=== PATIENT | female | born 1955 | race Caucasian/White ===

== ENCOUNTER → 2016-04-04 | Outpatient (REF) | payer OTHER | LOC: M LABDRAWC 11:12 | PROVIDERS: ATTEND Obstetrics & Gynecology Gynecologic Oncology | DX: C56.2 Malignant neoplasm of left ovary (principal) ==

== ENCOUNTER → 2016-07-18 | Outpatient (REF) | payer OTHER ==
[2016-07-18 13:20] LABS: ANION GAP 9 MEQ/L (8-16); BLOOD UREA NITROGEN 24 MG/DL (7-18); CALCIUM LEVEL 8.7 MG/DL (8.8-10.2); CARBON DIOXIDE LEVEL 28 MEQ/L (21-32); CHLORIDE LEVEL 103 MEQ/L (98-107); CREATININE FOR GFR 0.67 MG/DL (0.55-1.02); GLOMERULAR FILTRATION RATE > 60.0 (>45); GLUCOSE, FASTING 110 MG/DL (80-110); POTASSIUM SERUM 4.6 MEQ/L (3.5-5.1); SODIUM LEVEL 140 MEQ/L (136-145)
== END ==
LOC: M SFHCCLAY 08:13
PROVIDERS: ATTEND Family Medicine
DX: R73.01 Impaired fasting glucose (principal); I10 Essential (primary) hypertension

== ENCOUNTER → 2016-07-18 | Outpatient (REF) | payer OTHER | LOC: M LABDRAWC 11:39 | PROVIDERS: ATTEND Obstetrics & Gynecology Gynecologic Oncology | DX: C56.2 Malignant neoplasm of left ovary (principal) ==

== ENCOUNTER → 2016-10-24 | Outpatient (REF) | payer OTHER | LOC: M LABDRAWC 11:22 | PROVIDERS: ATTEND Obstetrics & Gynecology Gynecologic Oncology | DX: C56.2 Malignant neoplasm of left ovary (principal); Z11.59 Encounter for screening for other viral diseases; I10 Essential (primary) hypertension; E78.00 Pure hypercholesterolemia, unspecified ==

== ENCOUNTER → 2016-10-24 | Outpatient (REF) | payer OTHER ==
[2016-10-24 12:49] LABS: ALBUMIN 3.8 GM/DL (3.2-5.2); ALBUMIN/GLOBULIN RATIO 1.23 (1.00-1.93); ALKALINE PHOSPHATASE 79 U/L (45-117); ALT/SGPT 48 U/L (12-78); AST/SGOT 18 U/L (15-37); BILIRUBIN,DIRECT 0.2 MG/DL (0.0-0.2); BILIRUBIN,TOTAL 0.6 MG/DL (0.2-1.0); TOTAL PROTEIN 6.9 GM/DL (6.4-8.2)
== END ==
LOC: M SFHCCLAY 07:47
PROVIDERS: ATTEND Family Medicine
DX: Z11.59 Encounter for screening for other viral diseases (principal); I10 Essential (primary) hypertension; E78.00 Pure hypercholesterolemia, unspecified

== ENCOUNTER → 2017-02-20 | Outpatient (REF) | payer OTHER | LOC: M LAB REF 11:20 | PROVIDERS: ATTEND Obstetrics & Gynecology Gynecologic Oncology | DX: C56.2 Malignant neoplasm of left ovary (principal) ==

== ENCOUNTER → 2017-06-19 | Outpatient (REF) | payer OTHER ==
[2017-06-19 12:17] LABS: CA 125 9.7 U/ML (<30.2)
== END ==
LOC: M LAB REF 11:11
DX: C56.2 Malignant neoplasm of left ovary (principal)
CPT/HCPCS: 86304

== ENCOUNTER → 2017-09-20 | Outpatient (REF) | payer OTHER ==
[2017-09-21 11:35] LABS: HEMATOCRIT 43.1 % (36.0-47.0); HEMOGLOBIN 14.7 g/dl (12.0-15.5); MEAN CORPUSCULAR HEMOGLOBIN 30.8 pg (27.0-33.0); MEAN CORPUSCULAR HGB CONC 34.1 g/dl (32.0-36.5); MEAN CORPUSCULAR VOLUME 90.2 fl (80.0-96.0); PLATELET COUNT, AUTOMATED 288 10^3/uL (150-450); RED BLOOD COUNT 4.78 10^6/uL (4.00-5.40); RED CELL DISTRIBUTION WIDTH 11.8 % (11.5-14.5); WHITE BLOOD COUNT 5.7 10^3/uL (4.0-10.0)
[2017-09-21 12:02] LABS: ERYTHROCYTE SEDIMENTATION RATE 5 mm/hr (0-30)
[2017-09-21 12:12] LABS: ALBUMIN 3.9 GM/DL (3.2-5.2); ALBUMIN/GLOBULIN RATIO 1.08 (1.00-1.93); ALKALINE PHOSPHATASE 68 U/L (45-117); ALT/SGPT 66 U/L (12-78); ANION GAP 10 MEQ/L (8-16); AST/SGOT 32 U/L (7-37); BILIRUBIN,TOTAL 0.7 MG/DL (0.2-1.0); BLOOD UREA NITROGEN 17 MG/DL (7-18); CARBON DIOXIDE LEVEL 31 MEQ/L (21-32); CHLORIDE LEVEL 100 MEQ/L (98-107); CREATININE FOR GFR 0.73 MG/DL (0.55-1.30); GLOMERULAR FILTRATION RATE > 60.0 (>45); GLUCOSE, FASTING 107 MG/DL (70-100); POTASSIUM SERUM 4.2 MEQ/L (3.5-5.1); SODIUM LEVEL 141 MEQ/L (136-145); TOTAL PROTEIN 7.5 GM/DL (6.4-8.2)
[2017-09-24 11:11] LABS: ALBUMIN % 57.3 % (55.8-66.1); ALPHA-1-GLOBULIN % 3.9 % (2.9-4.9); ALPHA-1-GLOBULINS 0.29 GM/DL (0.17-0.41); ALPHA-2-GLOBULINS % 9.3 % (7.1-11.8); BETA-1-GLOBULINS % 6.6 % (4.7-7.2); BETA-2-GLOBULINS 0.53 GM/DL (0.19-0.55); BETA-2-GLOBULINS % 7.1 % (3.2-6.5); GAMMA GLOBULIN % 15.8 % (11.1-18.8); GAMMA GLOBULINS 1.19 GM/DL (0.65-1.58)
== END ==
LOC: M SFHCCLAY 13:44
DX: R10.9 Unspecified abdominal pain (principal); I10 Essential (primary) hypertension; Z85.43 Personal history of malignant neoplasm of ovary; N20.0 Calculus of kidney

== ENCOUNTER → 2017-09-24 | Outpatient (CLI) | payer OTHER | LOC: M RAD 07:47 | DX: K76.0 Fatty (change of) liver, not elsewhere classified (principal); K43.9 Ventral hernia without obstruction or gangrene; K57.30 Diverticulosis of large intestine without perforation or abscess without bleeding; R10.9 Unspecified abdominal pain; N20.0 Calculus of kidney; Z85.43 Personal history of malignant neoplasm of ovary | CPT/HCPCS: 74176 ==

== ENCOUNTER 2017-10-10 10:54 | Day surgery (SDC) | payer OTHER ==
[2017-10-10] MEDS: NS 1,000 ML IV (11:00)
[2017-10-10] MEDS ORDERED: PROPOFOL 200 MG/20 ML VIAL As Ordered ×2 (11:41)
[2017-10-10] MEDS ORDERED: LIDOCAINE 2% INJ 100 MG/5 ML SDV (FOR ANES.) As Ordered (11:41)
[2017-10-10] MEDS ORDERED: fentaNYL 100 MCG/2 ML INJECTION (J3010) As Ordered (11:43)
== END 2017-10-10 12:51 | disposition home or self-care (01) ==
LOC: M OPP 10:54
DX: K64.0 First degree hemorrhoids (principal); K57.30 Diverticulosis of large intestine without perforation or abscess without bleeding; K22.8 Other specified diseases of esophagus; K44.9 Diaphragmatic hernia without obstruction or gangrene; K31.89 Other diseases of stomach and duodenum; I10 Essential (primary) hypertension; E78.00 Pure hypercholesterolemia, unspecified; Z79.82 Long term (current) use of aspirin; Z79.899 Other long term (current) drug therapy; Z88.5 Allergy status to narcotic agent; Z88.8 Allergy status to other drugs, medicaments and biological substances; Z91.89 Other specified personal risk factors, not elsewhere classified; Z90.710 Acquired absence of both cervix and uterus; Z80.0 Family history of malignant neoplasm of digestive organs; Z82.49 Family history of ischemic heart disease and other diseases of the circulatory system; Z83.3 Family history of diabetes mellitus
CPT/HCPCS: 45378

== ENCOUNTER → 2017-12-18 | Outpatient (REF) | payer OTHER | LOC: M LABDRAWC 11:35 | DX: C56.2 Malignant neoplasm of left ovary (principal) ==

== ENCOUNTER → 2018-05-31 | Outpatient (CLI) | payer MEDICARE, OTHER ==
[~2018-05-31] MED LIST: ASPI1TAB PO; CARV25TA; FELO5TAB; FISH100049 PO; FISH600C PO; LASI40TA9 PO; MAGN1TAB25 PO; PRAV20TA2 PO; QUIN1TAB4 PO; VITA100067 PO; VITA50TA43 PO
--- NOTE | 2018-05-31 11:51 | REP ---
Abdomen: Two views. History: Kidney stone. Comparison study: February 12, 2008. Findings: There are clips in the upper abdomen bilaterally. Central abdominal clips are noted. There is a mild levoconvex curve in the lumbar spine. The bowel gas pattern is unremarkable. There is a faintly visible 4 mm calculus projecting over the lower pole region of the right kidney. This corresponds with findings on CT study from September 24, 2017. No other urinary tract calculi are visible. Impression: 4 mm calculus projected at the lower pole right kidney. Postoperative clips.
== END ==
LOC: M CLY 10:02
PROVIDERS: ATTEND Nurse Practitioner Women's Health
DX: N20.0 Calculus of kidney (principal)

== ENCOUNTER → 2018-06-18 | Outpatient (REF) | payer MEDICARE, OTHER | LOC: M LABDRAWC 11:24 | PROVIDERS: ATTEND Obstetrics & Gynecology Gynecologic Oncology | DX: C56.2 Malignant neoplasm of left ovary (principal) ==

== ENCOUNTER → 2018-07-09 | Outpatient (REF) | payer MEDICARE, OTHER ==
[~2018-07-09] MED LIST changes: -ASPI1TAB PO; +ASPI81TA26 PO; +FISH1000 PO; -MAGN1TAB25 PO; +MAGN1TAB26 PO; +PROBCAP14 PO; +VITAD1000T PO
[2018-07-09 17:38] LABS: BLOOD UREA NITROGEN 22 MG/DL (7-18); CALCIUM LEVEL 9.1 MG/DL (8.8-10.2); CARBON DIOXIDE LEVEL 32 MEQ/L (21-32); CHLORIDE LEVEL 103 MEQ/L (98-107); CREATININE FOR GFR 0.76 MG/DL (0.55-1.30); GLOMERULAR FILTRATION RATE > 60.0 (>45); GLUCOSE, FASTING 94 MG/DL (70-100); SODIUM LEVEL 139 MEQ/L (136-145)
[2018-07-09 17:44] LABS: HEMATOCRIT 41.8 % (36.0-47.0); HEMOGLOBIN 13.9 g/dl (12.0-15.5); MEAN CORPUSCULAR HEMOGLOBIN 31.2 pg (27.0-33.0); MEAN CORPUSCULAR HGB CONC 33.3 g/dl (32.0-36.5); MEAN CORPUSCULAR VOLUME 93.7 fl (80.0-96.0); PLATELET COUNT, AUTOMATED 241 10^3/uL (150-450); RED BLOOD COUNT 4.46 10^6/uL (4.00-5.40); WHITE BLOOD COUNT 5.6 10^3/uL (4.0-10.0)
[2018-07-09 17:53] LABS: INR 0.95; PROTHROMBIN TIME 12.8 SECONDS (12.1-14.4)
[2018-07-09 17:54] LABS: PARTIAL THROMBOPLASTIN TIME 27.7 SECONDS (25.4-37.6)
== END ==
LOC: M LABSMT 10:03
PROVIDERS: ATTEND Nurse Practitioner Family
DX: Z01.818 Encounter for other preprocedural examination (principal); N20.0 Calculus of kidney; Z79.01 Long term (current) use of anticoagulants

== ENCOUNTER → 2018-07-09 | Outpatient (CLI) | payer MEDICARE, OTHER ==
--- NOTE | 2018-07-09 12:20 | REP ---
PA and lateral chest: Comparison is 07/29/2012. The lung soto appear hyperinflated, as previously. The lung soto are clear. The cardiac size is normal. The chad, mediastinum, and skeletal structures are unremarkable except for a small metallic screw in the left humeral head as an interval change. Impression: Hyperinflation, otherwise, negative PA and lateral chest. Electronically Signed by Sohail Oconnell MD 07/09/2018 12:12 P
== END ==
LOC: M CLY 10:08
PROVIDERS: ATTEND Nurse Practitioner Family
DX: Z01.818 Encounter for other preprocedural examination (principal); N20.0 Calculus of kidney; R91.8 Other nonspecific abnormal finding of lung field

== ENCOUNTER 2018-07-18 06:33 | Day surgery (SDC) | payer MEDICARE, OTHER ==
[~2018-07-18] VITALS: Ht 165.1 cm; Wt 101.6 kg
[~2018-07-18 06:33] MED LIST changes: +LR 1,000 ML IV ONE
[2018-07-18] MEDS ORDERED: PROPOFOL 200 MG/20 ML VIAL As Ordered ONE ×2 (07:52→09:56)
[2018-07-18] MEDS ORDERED: MIDAZOLAM INJ 2 MG/2 ML VIAL (J2250) As Ordered ONE (07:53)
[2018-07-18] MEDS ORDERED: fentaNYL 100 MCG/2 ML INJECTION (J3010) As Ordered ONE (07:54)
--- NOTE | 2018-07-18 10:19 | REP ---
KUB, ONE VIEW: HISTORY Kidney stone. COMPARISON: 05/31/2018. Air is present in small and large intestine. There are no air fluid levels or dilated loops of intestine. There is no pneumoperitoneum. Calcification is present overlying the right kidney consistent with nephrolithiasis. Surgical clips are present in the abdomen. IMPRESSION: 1. Nonspecific bowel gas pattern. 2. Right nephrolithiasis. Electronically Signed by Kg aCrson MD 07/18/2018 10:30 A
[2018-07-18] MEDS ORDERED: ACETAMINOPHEN TAB 650MG DOSE (2X325MG) PO PRN (10:30)
[2018-07-18 11:55] VITALS: BP 151/70
--- NOTE | 2018-07-19 13:29 | RO ---
DATE OF PROCEDURE: 07/18/2018 PREPROCEDURE DIAGNOSIS: Right kidney stone. POSTPROCEDURE DIAGNOSIS: Right kidney stone. PROCEDURE: Right extracorporeal shockwave lithotripsy. SURGEON: Dr. Michel Moe SILK SCREEN LAYOUT DRAFTER: None. ANESTHESIA: Monitored anesthesia care (MAC). OPERATIVE INDICATIONS: This is a 63-year-old female found to have a 4 mm non obstructing right kidney stone on recent imaging. She was brought to the operating room today for the above listed procedure. DESCRIPTION OF PROCEDURE: The patient was brought to the operating room and MAC anesthesia was administered. Prophylactic antibiotics were infused. She was then placed in supine position for preparation for right sided extracorporeal shockwave lithotripsy. Fluoroscopy was utilized to monitor the stone position and fragmentation throughout the procedure. Shockwaves were then administered to the right sided kidney stone ungated. There were no arrhythmias. The stones appeared to fragment well. After 2500 shocks, the procedure was concluded. The patient was then awakened from anesthesia and transported to the recovery room in stable condition. Estimated blood loss 0 mL. Complications: None. Specimens: None. Plan: The patient will followup in the clinic in a few weeks with imaging prior to assess for residual stone burden.
== END 2018-07-18 11:56 | disposition home or self-care (01) ==
LOC: M SDC 06:33
PROVIDERS: ATTEND Urology
DX: N20.0 Calculus of kidney (principal); I10 Essential (primary) hypertension; E78.00 Pure hypercholesterolemia, unspecified; K57.30 Diverticulosis of large intestine without perforation or abscess without bleeding; K44.9 Diaphragmatic hernia without obstruction or gangrene; K76.0 Fatty (change of) liver, not elsewhere classified; M17.0 Bilateral primary osteoarthritis of knee; I89.0 Lymphedema, not elsewhere classified; E66.9 Obesity, unspecified; Z68.38 Body mass index [BMI] 38.0-38.9, adult; Z88.5 Allergy status to narcotic agent; Z88.6 Allergy status to analgesic agent; Z79.899 Other long term (current) drug therapy; Z85.43 Personal history of malignant neoplasm of ovary; Z15.09 Genetic susceptibility to other malignant neoplasm; Z92.21 Personal history of antineoplastic chemotherapy
CPT/HCPCS: 50590; 74018; J0690; J2250; J3010

== ENCOUNTER → 2018-08-08 | Outpatient (CLI) | payer MEDICARE, OTHER ==
[~2018-08-08] MED LIST changes: -LR 1,000 ML IV ONE
--- NOTE | 2018-08-08 09:32 | REP ---
KUB, ONE VIEW: HISTORY: Nephrolithiasis. COMPARISON: 07/18/2018. A small amount of air is present in small and large intestine. There are no air fluid levels or dilated loops of intestine. There is no pneumoperitoneum. Calcification is present overlying the right kidney consistent with nephrolithiasis. Surgical clips are present in the abdomen. IMPRESSION: 1. Nonspecific bowel gas pattern. 2. Right nephrolithiasis. Electronically Signed by Kg Carson MD 08/08/2018 09:43 A
== END ==
LOC: M SMT 08:48
PROVIDERS: ATTEND Nurse Practitioner Family
DX: N20.0 Calculus of kidney (principal)

== ENCOUNTER → 2018-10-22 | Outpatient (REF) | payer MEDICARE, OTHER ==
[2018-10-22 12:16] LABS: ALBUMIN 3.6 GM/DL (3.2-5.2); PERCENT SATURATION 27.3 % (13.2-45.0)
== END ==
LOC: M LABDRAWC 11:36
PROVIDERS: ATTEND Orthopaedic Surgery Adult Reconstructive Orthopaedic Surgery
DX: K90.9 Intestinal malabsorption, unspecified (principal); M25.562 Pain in left knee; Z01.818 Encounter for other preprocedural examination; M17.12 Unilateral primary osteoarthritis, left knee

== ENCOUNTER → 2018-12-24 | Outpatient (REF) | payer MEDICARE, OTHER ==
[~2018-12-24] MED LIST changes: +CHOL100029 PO; -FELO5TAB; +FELO5TAB26; -VITAD1000T PO
== END ==
LOC: M LABDRAWC 11:02
PROVIDERS: ATTEND Obstetrics & Gynecology Gynecologic Oncology
DX: C56.2 Malignant neoplasm of left ovary (principal)

== ENCOUNTER → 2019-02-07 | Outpatient (CLI) | payer MEDICARE, OTHER ==
[~2019-02-07] MED LIST changes: +FELO5TAB; -FELO5TAB26
--- NOTE | 2019-02-07 16:03 | REP ---
Single view abdomen: 02/07/2019. Indication: Renal calculus. Comparison: Plain film dated 08/08/[address] dated 09/24/2017. Findings: The right renal calculus is better demonstrated by CT. There is no change compared to 08/08/2018. Scoliosis and degenerative sequelae are present most pronounced on the right at L3/L4. There is no evidence of bowel obstruction. Multiple abdominal surgical clips are noted. Impression: Nonobstructive right renal calculus better demonstrated by CT technique. Electronically Signed by Morteza Veronica DO 02/07/2019 03:55 P
== END ==
LOC: M RAD 15:20
PROVIDERS: ATTEND Nurse Practitioner Family
DX: N20.0 Calculus of kidney (principal)

== ENCOUNTER → 2019-07-15 | Outpatient (REF) | payer MEDICARE, OTHER ==
[~2019-07-15] MED LIST changes: -FELO5TAB; +FELO5TAB26
== END ==
LOC: M LABDRAWC 11:13
PROVIDERS: ATTEND Obstetrics & Gynecology Gynecologic Oncology
DX: C56.2 Malignant neoplasm of left ovary (principal)

== ENCOUNTER → 2019-10-11 | Outpatient (CLI) | payer MEDICARE, OTHER | LOC: M LABSMTC 12:07 | PROVIDERS: ATTEND Family Medicine | DX: Z11.59 Encounter for screening for other viral diseases (principal); Z20.828 Contact with and (suspected) exposure to other viral communicable diseases | CPT/HCPCS: C9803; U0003 ==

== ENCOUNTER → 2019-11-03 | Outpatient (REF) | payer MEDICARE, OTHER ==
[2019-12-17 13:50] LABS: ALBUMIN 3.7 GM/DL (3.2-5.2); PERCENT SATURATION 32.2 % (13.2-45.0)
== END ==
LOC: M LABDRAWC 09:50
PROVIDERS: ATTEND Orthopaedic Surgery Adult Reconstructive Orthopaedic Surgery
DX: Z01.818 Encounter for other preprocedural examination (principal); M17.11 Unilateral primary osteoarthritis, right knee; M25.561 Pain in right knee; D63.8 Anemia in other chronic diseases classified elsewhere

== ENCOUNTER → 2019-11-14 | Outpatient (REF) | payer MEDICARE, OTHER ==
[2019-11-14 13:26] LABS: ALBUMIN 3.8 GM/DL (3.2-5.2); ALT/SGPT 42 U/L (12-78); BILIRUBIN,TOTAL 0.6 MG/DL (0.2-1.0); BLOOD UREA NITROGEN 16 MG/DL (7-18); CALCIUM LEVEL 9.2 MG/DL (8.8-10.2); CARBON DIOXIDE LEVEL 30 MEQ/L (21-32); CHLORIDE LEVEL 107 MEQ/L (98-107); CREATININE FOR GFR 0.84 MG/DL (0.55-1.30); GLOMERULAR FILTRATION RATE > 60.0 (>45); GLUCOSE, FASTING 127 MG/DL (70-100); POTASSIUM SERUM 4.3 MEQ/L (3.5-5.1); SODIUM LEVEL 139 MEQ/L (136-145); TOTAL PROTEIN 6.9 GM/DL (6.4-8.2)
== END ==
LOC: M LABDRAWC 12:12
PROVIDERS: ATTEND Family Medicine
DX: K76.0 Fatty (change of) liver, not elsewhere classified (principal); I10 Essential (primary) hypertension

== ENCOUNTER → 2020-01-14 | Outpatient (REF) | payer MEDICARE, OTHER | LOC: M LABDRAWC 11:28 | PROVIDERS: ATTEND Obstetrics & Gynecology Gynecologic Oncology | DX: C56.2 Malignant neoplasm of left ovary (principal) ==

== ENCOUNTER → 2020-02-06 | Outpatient (CLI) | payer MEDICARE, OTHER ==
--- NOTE | 2020-02-06 13:28 | REP ---
INDICATION: N20.0, KIDNEY STONE. COMPARISON: 02/07/2019 FINDINGS: KUB shows the intestinal gas pattern to be nonspecific. The organ silhouettes insofar as delineated are unremarkable. There is no evidence of free intraperitoneal air. There is a disc shaped radiodensity in the region of the gastric air bubble consistent with an ingested pill form of medication. There are bilateral pelvic phleboliths status quo. There is no significant change in the osseous structures. IMPRESSION: No significant change. <Electronically signed by Raimundo Garcia > 02/06/20 0718
== END ==
LOC: M CLY 10:59
PROVIDERS: ATTEND Nurse Practitioner Family
DX: I87.8 Other specified disorders of veins (principal); N20.0 Calculus of kidney
CPT/HCPCS: 74018; G0463

== ENCOUNTER → 2020-07-15 | Outpatient (REF) | payer MEDICARE, OTHER | LOC: M LABDRAWC 11:31 | PROVIDERS: ATTEND Obstetrics & Gynecology Gynecologic Oncology | DX: C56.2 Malignant neoplasm of left ovary (principal) ==

== ENCOUNTER → 2020-08-04 | Outpatient (CLI) | payer MEDICARE, OTHER ==
[~2020-08-04] MED LIST changes: +D31000TA2 PO; +DILT1CAP5 PO; +ELIQ5TAB PO; +POTA1TAB14 PO; +QUIN10TA32 PO
== END ==
LOC: M LABSMTC 12:19
PROVIDERS: ATTEND Anesthesiology
DX: Z01.812 Encounter for preprocedural laboratory examination (principal); Z20.822 Contact with and (suspected) exposure to COVID-19

== ENCOUNTER → 2020-08-06 | Outpatient (REF) | payer MEDICARE, OTHER ==
[2020-08-06 11:45] LABS: BASO % 0.2 % (0.0-1.0); EOS # 0.1 10^3/uL (0.0-0.5); EOS % 1.6 % (0.0-3.0); HEMATOCRIT 43.1 % (36.0-47.0); HEMOGLOBIN 14.3 g/dl (12.0-15.5); LYMPH # 1.4 10^3/uL (1.5-5.0); LYMPH % 33.3 % (24.0-44.0); MEAN CORPUSCULAR HGB CONC 33.2 g/dl (32.0-36.5); MEAN CORPUSCULAR VOLUME 93.3 fl (80.0-96.0); MONO # 0.5 10^3/uL (0.0-0.8); MONO % 11.6 % (2.0-8.0); NEUTROPHILS # 2.3 10^3/uL (1.5-8.5); NEUTROPHILS % 53.1 % (36.0-66.0); PLATELET COUNT, AUTOMATED 217 10^3/uL (150-450); RED BLOOD COUNT 4.62 10^6/uL (4.00-5.40); WHITE BLOOD COUNT 4.3 10^3/uL (4.0-10.0)
[2020-08-06 12:27] LABS: ALBUMIN 3.5 GM/DL (3.2-5.2); ALT/SGPT 36 U/L (12-78); BILIRUBIN,TOTAL 0.6 MG/DL (0.2-1.0); BLOOD UREA NITROGEN 20 MG/DL (7-18); CALCIUM LEVEL 9.1 MG/DL (8.8-10.2); CARBON DIOXIDE LEVEL 30 MEQ/L (21-32); CHLORIDE LEVEL 106 MEQ/L (98-107); CHOLESTEROL LEVEL 169 MG/DL (<200); CREATININE FOR GFR 0.75 MG/DL (0.55-1.30); GLOMERULAR FILTRATION RATE > 60.0 (>45); GLUCOSE, FASTING 117 MG/DL (70-100); HDL CHOLESTEROL 65 MG/DL (>40); LDL CHOLESTEROL 79 MG/DL (<100); NON-HDL-C 104 MG/DL; POTASSIUM SERUM 4.3 MEQ/L (3.5-5.1); SODIUM LEVEL 141 MEQ/L (136-145); TOTAL PROTEIN 6.5 GM/DL (6.4-8.2); TRIGLYCERIDES LEVEL 123 MG/DL (<150)
[2020-08-06 12:39] LABS: HEMOGLOBIN A1c 5.7 %
== END ==
LOC: M SFHCCLAY 08:30
PROVIDERS: ATTEND Family Medicine
DX: I10 Essential (primary) hypertension (principal); I48.0 Paroxysmal atrial fibrillation; E78.00 Pure hypercholesterolemia, unspecified; Z79.899 Other long term (current) drug therapy

== ENCOUNTER 2020-08-09 09:43 | Day surgery (SDC) | payer MEDICARE, OTHER ==
[~2020-08-09] VITALS: Ht 165.1 cm; Wt 105.7 kg
[~2020-08-09 09:43] MED LIST changes: +NS 1,000 ML IV ONE
[2020-08-09] MEDS ORDERED: propofoL 500 MG/50 ML VIAL As Ordered ONE (09:58)
[2020-08-09] MEDS ORDERED: LIDOCAINE 2% 100MG/5ML SDV (FOR ANES.) As Ordered ONE (09:58)
[2020-08-09] MEDS ORDERED: fentaNYL 100 MCG/2 ML INJECTION (J3010) As Ordered ONE (10:37)
--- NOTE | 2020-08-09 10:52 | ROOR ---
Patient Name: Gina Avendano Procedure Date: 08/09/2020 10:34 AM Date of : 1955 Age: 65 Room: [facility] Gender: Female Note Status: Finalized Procedure: Upper Endoscopy + Biopsies Indications: Heartburn, Exclusion of Brooks's esophagus Providers: Enzo Ramos MD Referring MD: Herbert Amaya MD Requesting Provider: Medicines: Monitored Anesthesia Care Complications: No immediate complications. Procedure: Pre-Anesthesia Assessment: - The heart rate, respiratory rate, oxygen saturations, blood pressure, adequacy of pulmonary ventilation, and response to care were monitored throughout the procedure. The Endoscope was introduced through the mouth, and advanced to the second part of duodenum. The upper GI endoscopy was accomplished without difficulty. The patient tolerated the procedure well. Findings: The Z-line was irregular and was found 40 cm from the incisors. Multiple biopsies were obtained with cold forceps for evaluation to rule out Brooks's Esophagus randomly. A small hiatal hernia was present. Localized mild inflammation characterized by congestion (edema) and erosions was found in the gastric antrum. Biopsies were taken with a cold forceps for Helicobacter pylori testing. The exam of the duodenum was otherwise normal. Impression: - Z-line irregular, 40 cm from the incisors. - Small hiatal hernia. - Mucosal changes suspicious for gastritis. Biopsied. - Multiple biopsies were obtained. - The examination was otherwise normal. Recommendation: - Patient has a contact number available for emergencies. The signs and symptoms of potential delayed complications were discussed with the patient. Return to normal activities tomorrow. Written discharge instructions were provided to the patient. - High fiber diet. - Discharge patient to home. - Continue present medications. - Await pathology results. - Telephone GI clinic for pathology results in 1 week. - Return to referring physician. - The findings and recommendations were discussed with the patient's family. Procedure Code(s): --- Professional --- 48830, Esophagogastroduodenoscopy, flexible, transoral; with biopsy, single or multiple Diagnosis Code(s): --- Professional --- K22.8, Other specified diseases of esophagus K44.9, Diaphragmatic hernia without obstruction or gangrene K31.89, Other diseases of stomach and duodenum R12, Heartburn CPT copyright 2019 [employer]. All rights reserved. The codes documented in this report are preliminary and upon label coder review may be revised to meet current compliance requirements. Enzo Ramos MD Enzo aRmos MD 08/09/2020 10:52:07 AM Electronically signed by Enzo Ramos MD Number of Addenda: 0 Note Initiated On: 08/09/2020 10:34 AM Estimated Blood Loss: Estimated blood loss: none.
--- NOTE | 2020-08-09 11:09 | ROOR ---
Patient Name: Gina Avendano Procedure Date: 08/09/2020 10:34 AM Date of : 1955 Age: 65 Room: [facility] Gender: Female Note Status: Finalized Procedure: Total Colonoscopy to Cecum + ileoscopy Indications: Colon cancer screening in patient at increased risk: Family history of hereditary nonpolyposis colorectal cancer in 1st-degree relative Providers: Enzo Ramos MD Referring MD: Herbert Amaya MD Requesting Provider: Medicines: Monitored Anesthesia Care Complications: No immediate complications. Procedure: Pre-Anesthesia Assessment: - The heart rate, respiratory rate, oxygen saturations, blood pressure, adequacy of pulmonary ventilation, and response to care were monitored throughout the procedure. The Colonoscope was introduced through the anus and advanced to the cecum, identified by appendiceal orifice and ileocecal valve. The colonoscopy was performed without difficulty. The patient tolerated the procedure well. The quality of the bowel preparation was excellent. Findings: The perianal and digital rectal examinations were normal. Non-bleeding internal hemorrhoids were found during retroflexion. The hemorrhoids were small and Grade I (internal hemorrhoids that do not prolapse). Multiple small and large-mouthed diverticula were found in the recto-sigmoid colon, sigmoid colon and descending colon. The exam was otherwise without abnormality on direct and retroflexion views. The terminal ileum appeared normal. The exam was otherwise without abnormality. Impression: - Non-bleeding internal hemorrhoids. - Diverticulosis in the recto-sigmoid colon, in the sigmoid colon and in the descending colon. - The examination was otherwise normal on direct and retroflexion views. - The examined portion of the ileum was normal. - The examination was otherwise normal. - No specimens collected. - The exam was otherwise normal to the cecum. Recommendation: - Patient has a contact number available for emergencies. The signs and symptoms of potential delayed complications were discussed with the patient. Return to normal activities tomorrow. Written discharge instructions were provided to the patient. - High fiber diet. - Discharge patient to home. - Continue present medications. - Resume Eliquis (apixaban) at prior dose today. - Repeat colonoscopy in 3 years for screening purposes. - Return to referring physician. - The findings and recommendations were discussed with the patient's family. Procedure Code(s): --- Professional --- G0105, Colorectal cancer screening; colonoscopy on individual at high risk Diagnosis Code(s): --- Professional --- Z80.0, Family history of malignant neoplasm of digestive organs K64.0, First degree hemorrhoids K57.30, Diverticulosis of large intestine without perforation or abscess without bleeding CPT copyright 2019 [employer]. All rights reserved. The codes documented in this report are preliminary and upon surgical coder review may be revised to meet current compliance requirements. Enzo Ramos MD Enzo Ramos MD 08/09/2020 11:08:20 AM Electronically signed by Enzo Ramos MD Number of Addenda: 0 Note Initiated On: 08/09/2020 10:34 AM Estimated Blood Loss: Estimated blood loss: none.
[2020-08-09 11:30] VITALS: BP 191/88
== END 2020-08-09 11:45 | disposition home or self-care (01) ==
LOC: M OPP 09:43
PROVIDERS: ATTEND Internal Medicine Gastroenterology
DX: Z12.11 Encounter for screening for malignant neoplasm of colon (principal); Z80.0 Family history of malignant neoplasm of digestive organs; K57.30 Diverticulosis of large intestine without perforation or abscess without bleeding; K64.0 First degree hemorrhoids; K22.8 Other specified diseases of esophagus; K44.9 Diaphragmatic hernia without obstruction or gangrene; K31.89 Other diseases of stomach and duodenum; R12 Heartburn; Z79.899 Other long term (current) drug therapy; Z88.5 Allergy status to narcotic agent; Z15.09 Genetic susceptibility to other malignant neoplasm; Z85.43 Personal history of malignant neoplasm of ovary; Z92.21 Personal history of antineoplastic chemotherapy
CPT/HCPCS: 43239; 88305; G0105; J3010

== ENCOUNTER → 2020-08-19 | Outpatient (REF) | payer MEDICARE, OTHER ==
[~2020-08-19] MED LIST changes: -NS 1,000 ML IV ONE
== END ==
LOC: M LABDRAWC 11:19
PROVIDERS: ATTEND Nurse Practitioner Family
DX: I48.91 Unspecified atrial fibrillation (principal)

== ENCOUNTER → 2021-01-14 | Outpatient (REF) | payer MEDICARE, OTHER | LOC: M LABDRAWC 11:16 | PROVIDERS: ATTEND Nurse Practitioner | DX: C56.2 Malignant neoplasm of left ovary (principal) ==

== ENCOUNTER → 2021-05-05 | Outpatient (REF) | payer MEDICARE, OTHER ==
[2021-05-05 13:20] LABS: ALBUMIN 3.7 GM/DL (3.2-5.2); ALT/SGPT 42 U/L (12-78); BILIRUBIN,TOTAL 0.6 MG/DL (0.2-1.0); BLOOD UREA NITROGEN 20 MG/DL (7-18); CALCIUM LEVEL 9.4 MG/DL (8.8-10.2); CARBON DIOXIDE LEVEL 29 MEQ/L (21-32); CHLORIDE LEVEL 104 MEQ/L (98-107); CREATININE FOR GFR 0.89 MG/DL (0.55-1.30); GLOMERULAR FILTRATION RATE > 60.0 (>45); GLUCOSE, FASTING 117 MG/DL (70-100); POTASSIUM SERUM 4.4 MEQ/L (3.5-5.1); SODIUM LEVEL 140 MEQ/L (136-145); TOTAL PROTEIN 6.8 GM/DL (6.4-8.2)
== END ==
LOC: M LABDRAWC 11:36
PROVIDERS: ATTEND Internal Medicine Hematology & Oncology
DX: C50.312 Malignant neoplasm of lower-inner quadrant of left female breast (principal); Z17.0 Estrogen receptor positive status [ER+]

== ENCOUNTER 2021-06-10 13:20 | Inpatient (IN) | payer MEDICARE, OTHER ==
[~2021-06-10] VITALS: Ht 162.6 cm; Wt 103.5 kg
[2021-06-10] VITALS (8 sets, daily range): BP systolic 138–238; BP diastolic 73–112
[~2021-06-10 13:20] MED LIST changes: -CARV25TA; +CARV25TA PO; -D31000TA2 PO; +VITA100093 PO
[2021-06-10] MEDS ORDERED: DEXTROSE 50% 50 ML SYRINGE IV PRN (13:55)
[2021-06-10] MEDS ORDERED: GLUCAGON INJ 1MG VIAL SC PRN (13:55)
[2021-06-10] MEDS ORDERED: GLUCOSE 4GM CHEW TABLET PO PRN (13:55)
[2021-06-10] MEDS ORDERED: hydrALAZINE 20MG/ML 1ML VIAL (J0360 PER 20MG) IV STA (16:13)
[2021-06-10] MEDS: NITROGLYCERIN 2% OINT 1 GM *U/D* PKT TOP SCH ×2 (16:37→21:18)
[2021-06-10] MEDS: ONDANSETRON 4MG/2ML VIAL IV PRN (16:42)
[2021-06-10] MEDS ORDERED: KETOROLAC 30 MG/ML 1ML VIAL IV PRN (17:00)
[2021-06-10 17:24] LABS: HEMATOCRIT 45.5 % (36.0-47.0); HEMOGLOBIN 15.4 g/dl (12.0-15.5); LYMPH # 0.5 10^3/uL (1.5-5.0); LYMPH % 4.6 % (24.0-44.0); MEAN CORPUSCULAR HEMOGLOBIN 30.7 pg (27.0-33.0); MEAN CORPUSCULAR HGB CONC 33.8 g/dl (32.0-36.5); MEAN CORPUSCULAR VOLUME 90.6 fl (80.0-96.0); MONO # 0.7 10^3/uL (0.0-0.8); MONO % 6.7 % (2.0-8.0); NEUTROPHILS # 9.6 10^3/uL (1.5-8.5); NEUTROPHILS % 88.1 % (36.0-66.0); PLATELET COUNT, AUTOMATED 231 10^3/uL (150-450); RED BLOOD COUNT 5.02 10^6/uL (4.00-5.40); WHITE BLOOD COUNT 10.9 10^3/uL (4.0-10.0)
[2021-06-10 17:34] LABS: INR 1.03; PROTHROMBIN TIME 13.9 SECONDS (12.7-14.5)
[2021-06-10 17:35] LABS: PARTIAL THROMBOPLASTIN TIME 23.1 SECONDS (25.9-37.0)
[2021-06-10 17:39] LABS: CK-MB VALUE MASS 1.6 NG/ML (<3.6)
[2021-06-10] MEDS ORDERED: FURO40TA2 PO (17:44)
[2021-06-10] MEDS ORDERED: OMEP-173 PO (17:44)
[2021-06-10] MEDS ORDERED: ANAS1TAB2 PO (17:44)
[2021-06-10 17:49] LABS: ALBUMIN 3.9 GM/DL (3.2-5.2); ALT/SGPT 42 U/L (12-78); BILIRUBIN,TOTAL 0.6 MG/DL (0.2-1.0); BLOOD UREA NITROGEN 21 MG/DL (7-18); CALCIUM LEVEL 9.1 MG/DL (8.8-10.2); CARBON DIOXIDE LEVEL 27 MEQ/L (21-32); CHLORIDE LEVEL 109 MEQ/L (98-107); CREATININE FOR GFR 0.81 MG/DL (0.55-1.30); GLOMERULAR FILTRATION RATE > 60.0 (>45); GLUCOSE, FASTING 157 MG/DL (70-100); MAGNESIUM LEVEL 2.1 MG/DL (1.8-2.4); NT-PRO BNP 845 PG/ML (<125); POTASSIUM SERUM 3.7 MEQ/L (3.5-5.1); SODIUM LEVEL 143 MEQ/L (136-145); THYROID STIMULATING HORMONE 0.767 uIU/ML (0.358-3.740); TOTAL PROTEIN 7.2 GM/DL (6.4-8.2)
[2021-06-10 17:57] LABS: ERYTHROCYTE SEDIMENTATION RATE 4 mm/hr (0-30)
[2021-06-10] MEDS ORDERED: hydrALAZINE 20MG/ML 1ML VIAL (J0360 PER 20MG) As Ordered ONE (18:42)
[2021-06-10] MEDS ORDERED: CALC600T60 PO (18:43)
[2021-06-10] MEDS ORDERED: HOME MED LIST COMPLETE! XX SCH (18:45)
[2021-06-11] VITALS (14 sets, daily range): BP systolic 139–187; BP diastolic 61–88; O2SAT 97
[2021-06-11] MEDS: hydrALAZINE 20MG/ML 1ML VIAL (J0360 PER 20MG) IV SCH ×5 (00:23→23:48)
[2021-06-11] MEDS: NITROGLYCERIN 2% OINT 1 GM *U/D* PKT TOP SCH ×2 (01:12→05:08)
[2021-06-11] MEDS ORDERED: HYDROMORPHONE HCL 0.5 MG/ 0.5 ML SYRINGE (J1170 PER 1) IV PRN (03:25)
[2021-06-11] MEDS: SIMETHICONE 80MG CHEW TAB PO SCH ×5 (03:35→21:00)
[2021-06-11] MEDS ORDERED: PILL CUTTER 1 EACH XX PRN (03:45)
[2021-06-11 08:01] LABS: HEMOGLOBIN 14.1 g/dl (12.0-15.5); MEAN CORPUSCULAR HEMOGLOBIN 30.7 pg (27.0-33.0); MEAN CORPUSCULAR HGB CONC 33.6 g/dl (32.0-36.5); MEAN CORPUSCULAR VOLUME 91.5 fl (80.0-96.0); PLATELET COUNT, AUTOMATED 230 10^3/uL (150-450); RED BLOOD COUNT 4.59 10^6/uL (4.00-5.40); WHITE BLOOD COUNT 12.5 10^3/uL (4.0-10.0)
[2021-06-11 08:26] LABS: CALCIUM LEVEL 9.1 MG/DL (8.8-10.2); CREATININE FOR GFR 0.99 MG/DL (0.55-1.30); GLOMERULAR FILTRATION RATE 59.4 (>45); MAGNESIUM LEVEL 2.3 MG/DL (1.8-2.4); POTASSIUM SERUM 3.7 MEQ/L (3.5-5.1)
[2021-06-11] MEDS: NS 1,000 ML IV SCH ×2 (09:47→21:00)
[2021-06-11] MEDS ORDERED: REMDESIVIR 200 MG in NS 250 ML IV ONE (12:00)
[2021-06-11] MEDS ORDERED: SODIUM CHLORIDE 0.9% INJ 10 ML SYR IV ONE (14:00)
[2021-06-12] VITALS (30 sets, daily range): BP systolic 160–218; BP diastolic 69–88; O2SAT 91–97
[2021-06-12] MEDS ORDERED: hydrALAZINE 20MG/ML 1ML VIAL (J0360 PER 20MG) IV ONE (00:55)
[2021-06-12] MEDS ORDERED: cloNIDine HCL 0.2 MG/24 HR PATCH TOP ONE (00:55)
[2021-06-12] MEDS: hydrALAZINE 20MG/ML 1ML VIAL (J0360 PER 20MG) IV SCH ×3 (06:02→18:33)
[2021-06-12 08:07] LABS: HEMATOCRIT 40.1 % (36.0-47.0); HEMOGLOBIN 13.3 g/dl (12.0-15.5); MEAN CORPUSCULAR HEMOGLOBIN 30.8 pg (27.0-33.0); MEAN CORPUSCULAR HGB CONC 33.2 g/dl (32.0-36.5); MEAN CORPUSCULAR VOLUME 92.8 fl (80.0-96.0); PLATELET COUNT, AUTOMATED 212 10^3/uL (150-450); RED BLOOD COUNT 4.32 10^6/uL (4.00-5.40); WHITE BLOOD COUNT 8.7 10^3/uL (4.0-10.0)
[2021-06-12] MEDS ORDERED: ANASTRAZOLE 1MG TABLET (PATIENT'S OWN MED) PO SCH (09:00)
[2021-06-12] MEDS: SIMETHICONE 80MG CHEW TAB PO SCH ×4 (09:36→20:42)
[2021-06-12 09:52] LABS: ALBUMIN 3.4 GM/DL (3.2-5.2); ALT/SGPT 39 U/L (12-78); BILIRUBIN,DIRECT 0.2 MG/DL (0.0-0.2); BILIRUBIN,TOTAL 1.6 MG/DL (0.2-1.0); BLOOD UREA NITROGEN 28 MG/DL (7-18); CALCIUM LEVEL 8.7 MG/DL (8.8-10.2); CARBON DIOXIDE LEVEL 29 MEQ/L (21-32); CHLORIDE LEVEL 112 MEQ/L (98-107); CREATININE FOR GFR 0.81 MG/DL (0.55-1.30); GLOMERULAR FILTRATION RATE > 60.0 (>45); GLUCOSE, FASTING 103 MG/DL (70-100); MAGNESIUM LEVEL 2.1 MG/DL (1.8-2.4); POTASSIUM SERUM 3.5 MEQ/L (3.5-5.1); SODIUM LEVEL 146 MEQ/L (136-145); TOTAL PROTEIN 6.7 GM/DL (6.4-8.2)
[2021-06-12] MEDS: APIXABAN 5 MG TAB (ELIQUIS) PO SCH ×2 (11:01→20:45)
[2021-06-12] MEDS: FUROSEMIDE 40 MG TAB PO SCH (11:02)
[2021-06-12] MEDS: OMEPRAZOLE 20MG CAP PO SCH (11:03)
[2021-06-12] MEDS: VITAMIN D 1,000 INTERNATIONAL UNITS TABLET PO SCH (11:03)
[2021-06-12] MEDS: POTASSIUM CHLORIDE 10MEQ SR TABLET PO SCH (11:03)
[2021-06-12] MEDS: CARVedilol 12.5 MG TAB PO SCH ×2 (11:06→20:44)
[2021-06-12] MEDS: REMDESIVIR 100 MG in NS 250 ML IV SCH (13:42)
[2021-06-12] MEDS: SODIUM CHLORIDE 0.9% INJ 10 ML SYR IV SCH (13:43)
[2021-06-12] MEDS: PYRIDOXINE 50 MG TAB PO SCH ×2 (18:33→20:45)
[2021-06-12] MEDS: PRAVASTATIN 20 MG TAB PO SCH (20:46)
[2021-06-13] VITALS (24 sets, daily range): BP systolic 140–197; BP diastolic 63–84; O2SAT 94–98
[2021-06-13] MEDS: hydrALAZINE 20MG/ML 1ML VIAL (J0360 PER 20MG) IV SCH ×3 (00:08→13:04)
[2021-06-13 06:40] LABS: HEMATOCRIT 40.1 % (36.0-47.0); HEMOGLOBIN 13.2 g/dl (12.0-15.5); MEAN CORPUSCULAR HGB CONC 32.9 g/dl (32.0-36.5); MEAN CORPUSCULAR VOLUME 94.1 fl (80.0-96.0); PLATELET COUNT, AUTOMATED 202 10^3/uL (150-450); RED BLOOD COUNT 4.26 10^6/uL (4.00-5.40); WHITE BLOOD COUNT 5.9 10^3/uL (4.0-10.0)
[2021-06-13 07:21] LABS: BLOOD UREA NITROGEN 27 MG/DL (7-18); CALCIUM LEVEL 8.9 MG/DL (8.8-10.2); CARBON DIOXIDE LEVEL 27 MEQ/L (21-32); CHLORIDE LEVEL 114 MEQ/L (98-107); GLOMERULAR FILTRATION RATE > 60.0 (>45); GLUCOSE, FASTING 98 MG/DL (70-100); MAGNESIUM LEVEL 2.4 MG/DL (1.8-2.4); POTASSIUM SERUM 3.7 MEQ/L (3.5-5.1); SODIUM LEVEL 148 MEQ/L (136-145)
[2021-06-13] MEDS ORDERED: E-Z-PAQUE 96% w/w SUSP 176GM BTL As Ordered ONE (08:32)
[2021-06-13] MEDS: OMEPRAZOLE 20MG CAP PO SCH (08:50)
[2021-06-13] MEDS: POTASSIUM CHLORIDE 10MEQ SR TABLET PO SCH (08:50)
[2021-06-13] MEDS: PYRIDOXINE 50 MG TAB PO SCH ×2 (08:50→20:43)
[2021-06-13] MEDS: VITAMIN D 1,000 INTERNATIONAL UNITS TABLET PO SCH (08:51)
[2021-06-13] MEDS: SIMETHICONE 80MG CHEW TAB PO SCH ×4 (08:51→20:43)
[2021-06-13] MEDS: APIXABAN 5 MG TAB (ELIQUIS) PO SCH (08:51)
[2021-06-13] MEDS: CARVedilol 12.5 MG TAB PO SCH ×2 (08:51→20:43)
[2021-06-13] MEDS: FUROSEMIDE 40 MG TAB PO SCH (08:51)
[2021-06-13] MEDS: SODIUM CHLORIDE 0.9% INJ 10 ML SYR IV SCH (13:05)
[2021-06-13] MEDS: REMDESIVIR 100 MG in NS 250 ML IV SCH (13:05)
[2021-06-13] MEDS ORDERED: hydrALAZINE 20MG/ML 1ML VIAL (J0360 PER 20MG) IV PRN (14:40)
[2021-06-13] MEDS: NS 1,000 ML IV SCH (14:58)
[2021-06-13] MEDS: PRAVASTATIN 20 MG TAB PO SCH (20:43)
[2021-06-14] VITALS (9 sets, daily range): BP systolic 113–185; BP diastolic 53–82; O2SAT 96–99
[2021-06-14 06:39] LABS: HEMATOCRIT 40.4 % (36.0-47.0); HEMOGLOBIN 13.3 g/dl (12.0-15.5); MEAN CORPUSCULAR HEMOGLOBIN 30.5 pg (27.0-33.0); MEAN CORPUSCULAR HGB CONC 32.9 g/dl (32.0-36.5); MEAN CORPUSCULAR VOLUME 92.7 fl (80.0-96.0); PLATELET COUNT, AUTOMATED 208 10^3/uL (150-450); RED BLOOD COUNT 4.36 10^6/uL (4.00-5.40); WHITE BLOOD COUNT 5.1 10^3/uL (4.0-10.0)
[2021-06-14 07:00] LABS: BLOOD UREA NITROGEN 22 MG/DL (7-18); CARBON DIOXIDE LEVEL 28 MEQ/L (21-32); CHLORIDE LEVEL 113 MEQ/L (98-107); CREATININE FOR GFR 0.71 MG/DL (0.55-1.30); GLOMERULAR FILTRATION RATE > 60.0 (>45); GLUCOSE, FASTING 97 MG/DL (70-100); POTASSIUM SERUM 3.6 MEQ/L (3.5-5.1); SODIUM LEVEL 146 MEQ/L (136-145)
[2021-06-14 07:01] LABS: CALCIUM LEVEL 8.5 MG/DL (8.8-10.2); MAGNESIUM LEVEL 1.8 MG/DL (1.8-2.4)
[2021-06-14] MEDS: OMEPRAZOLE 20MG CAP PO SCH (08:31)
[2021-06-14] MEDS: POTASSIUM CHLORIDE 10MEQ SR TABLET PO SCH (08:32)
[2021-06-14] MEDS: SIMETHICONE 80MG CHEW TAB PO SCH ×5 (08:32→20:45)
[2021-06-14] MEDS: CARVedilol 12.5 MG TAB PO SCH ×2 (08:35→20:44)
[2021-06-14] MEDS: FUROSEMIDE 40 MG TAB PO SCH (08:35)
[2021-06-14] MEDS: VITAMIN D 1,000 INTERNATIONAL UNITS TABLET PO SCH (08:36)
[2021-06-14] MEDS: PYRIDOXINE 50 MG TAB PO SCH (08:41)
[2021-06-14] MEDS: NS 1,000 ML IV SCH (12:43)
[2021-06-14] MEDS: D5W/0.45% SODIUM CHLORIDE 1,000 ML IV SCH (17:42)
[2021-06-15] VITALS (7 sets, daily range): BP systolic 158–182; BP diastolic 71–77; O2SAT 94–98
[2021-06-15] MEDS: D5W/0.45% SODIUM CHLORIDE 1,000 ML IV SCH (04:46)
[2021-06-15 06:34] LABS: HEMATOCRIT 37.5 % (36.0-47.0); HEMOGLOBIN 12.6 g/dl (12.0-15.5); MEAN CORPUSCULAR HGB CONC 33.6 g/dl (32.0-36.5); MEAN CORPUSCULAR VOLUME 92.1 fl (80.0-96.0); PLATELET COUNT, AUTOMATED 196 10^3/uL (150-450); RED BLOOD COUNT 4.07 10^6/uL (4.00-5.40); WHITE BLOOD COUNT 4.3 10^3/uL (4.0-10.0)
[2021-06-15 06:57] LABS: BLOOD UREA NITROGEN 19 MG/DL (7-18); CALCIUM LEVEL 8.3 MG/DL (8.8-10.2); CARBON DIOXIDE LEVEL 29 MEQ/L (21-32); CHLORIDE LEVEL 110 MEQ/L (98-107); CREATININE FOR GFR 0.68 MG/DL (0.55-1.30); GLOMERULAR FILTRATION RATE > 60.0 (>45); GLUCOSE, FASTING 108 MG/DL (70-100); MAGNESIUM LEVEL 1.9 MG/DL (1.8-2.4); POTASSIUM SERUM 3.1 MEQ/L (3.5-5.1); SODIUM LEVEL 145 MEQ/L (136-145)
[2021-06-15] MEDS: POTASSIUM CHLORIDE 10MEQ SR TABLET PO SCH (08:15)
[2021-06-15] MEDS: SIMETHICONE 80MG CHEW TAB PO SCH ×4 (08:16→20:00)
[2021-06-15] MEDS: PANTOPRAZOLE 40MG VIAL IV SCH (08:16)
[2021-06-15] MEDS: CARVedilol 12.5 MG TAB PO SCH ×2 (08:30→20:01)
[2021-06-15] MEDS: KCL 40MEQ IN D5/0.45NS 1000ML 1,000 ML IV SCH ×2 (09:35→19:59)
[2021-06-16] VITALS (11 sets, daily range): BP systolic 151–194; BP diastolic 65–88; O2SAT 92–95
[2021-06-16 06:18] LABS: HEMATOCRIT 38.5 % (36.0-47.0); HEMOGLOBIN 12.9 g/dl (12.0-15.5); MEAN CORPUSCULAR HEMOGLOBIN 30.9 pg (27.0-33.0); MEAN CORPUSCULAR HGB CONC 33.5 g/dl (32.0-36.5); MEAN CORPUSCULAR VOLUME 92.3 fl (80.0-96.0); PLATELET COUNT, AUTOMATED 194 10^3/uL (150-450); RED BLOOD COUNT 4.17 10^6/uL (4.00-5.40); WHITE BLOOD COUNT 4.6 10^3/uL (4.0-10.0)
[2021-06-16 06:48] LABS: BLOOD UREA NITROGEN 12 MG/DL (7-18); CALCIUM LEVEL 8.2 MG/DL (8.8-10.2); CARBON DIOXIDE LEVEL 28 MEQ/L (21-32); CHLORIDE LEVEL 108 MEQ/L (98-107); CREATININE FOR GFR 0.67 MG/DL (0.55-1.30); GLOMERULAR FILTRATION RATE > 60.0 (>45); GLUCOSE, FASTING 118 MG/DL (70-100); MAGNESIUM LEVEL 1.8 MG/DL (1.8-2.4); POTASSIUM SERUM 3.7 MEQ/L (3.5-5.1); SODIUM LEVEL 139 MEQ/L (136-145)
[2021-06-16] MEDS: PANTOPRAZOLE 40MG VIAL IV SCH (08:47)
[2021-06-16] MEDS: **hydrALAZINE** 50 MG TAB PO SCH ×4 (08:48→23:34)
[2021-06-16] MEDS: CARVedilol 12.5 MG TAB PO SCH ×2 (08:48→20:19)
[2021-06-16] MEDS: SIMETHICONE 80MG CHEW TAB PO SCH ×4 (08:49→20:19)
[2021-06-16] MEDS: POTASSIUM CHLORIDE 10MEQ SR TABLET PO SCH (08:49)
[2021-06-16] MEDS: KCL 40MEQ IN D5/0.45NS 1000ML 1,000 ML IV SCH (09:54)
[2021-06-16] MEDS ORDERED: fentaNYL 250 MCG/5 ML INJECTION As Ordered ONE (10:05)
[2021-06-16] MEDS ORDERED: ROCURONIUM BROMIDE 50 MG/5 ML VIAL As Ordered ONE ×2 (10:05→14:52)
[2021-06-16] MEDS ORDERED: LIDOCAINE 2% 100MG/5ML SDV (FOR ANES.) As Ordered ONE (10:05)
[2021-06-16] MEDS ORDERED: propofoL 200 MG/20 ML VIAL As Ordered ONE (10:05)
[2021-06-16] MEDS ORDERED: MIDAZOLAM INJ 2MG/2ML VIAL (J2250 PER 1MG) As Ordered ONE (10:06)
[2021-06-16] MEDS ORDERED: BUPIVACAINE HCL 0.25% 10ML VIAL As Ordered ONE (10:53)
[2021-06-16] MEDS ORDERED: BUPIVACAINE LIPOSOME/PF 1.3% 20ML VIAL (13.3MG/ML)(EXPAREL) As Ordered ONE (10:53)
[2021-06-16] MEDS ORDERED: LIDOCAINE W/EPINEPHRINE 1% 20ML VIAL As Ordered ONE (13:16)
[2021-06-16] MEDS ORDERED: ceFAZolin 2 GM/D5W 50 ML IV BAG (J0690 PER 500MG) As Ordered ONE (14:05)
[2021-06-16] MEDS ORDERED: ePHEDrine SULFATE 25 MG/5 ML(5MG/ML) SYRINGE As Ordered ONE (14:05)
[2021-06-16] MEDS ORDERED: SUCCINYLCHOLINE 100 MG/5 ML SYRINGE (J0330) As Ordered ONE (14:13)
[2021-06-16] MEDS ORDERED: dexameTHASONE 4 MG/ML 1ML VIAL (J1100 PER 1MG) As Ordered ONE (14:20)
[2021-06-16] MEDS ORDERED: KETOROLAC 60MG 2ML VIAL As Ordered ONE (14:20)
[2021-06-16] MEDS ORDERED: ONDANSETRON 4MG/2ML VIAL As Ordered ONE (14:20)
[2021-06-16] MEDS ORDERED: ACETAMINOPHEN 1000MG 100ML IV BTL (OFIRMEV) (J0131 PER 10MG) As Ordered ONE (14:20)
[2021-06-16] MEDS ORDERED: SUGAMMADEX SODIUM 500 MG/5 ML VIAL (BRIDION) As Ordered ONE (14:32)
[2021-06-16] MEDS ORDERED: HYDROmorphone HCL 2MG/ML 1ML VIAL As Ordered ONE (14:34)
[2021-06-16] MEDS ORDERED: fentaNYL 100 MCG/2 ML INJECTION IV PRN (16:05)
[2021-06-16] MEDS: ONDANSETRON 4MG/2ML VIAL IV PRN (16:56)
[2021-06-16] MEDS: METOCLOPRAMIDE INJ 10MG/2ML VIAL (J2765 PER 1) IV SCH ×2 (18:16→23:31)
[2021-06-16] MEDS: LR 1,000 ML IV SCH (19:00)
[2021-06-16] MEDS: KETOROLAC 30 MG/ML 1ML VIAL IV SCH (20:19)
[2021-06-17] VITALS (9 sets, daily range): BP systolic 149–178; BP diastolic 62–80; O2SAT 92–96
[2021-06-17] MEDS: LR 1,000 ML IV SCH (03:29)
[2021-06-17] MEDS: KETOROLAC 30 MG/ML 1ML VIAL IV SCH ×4 (03:29→20:55)
[2021-06-17] MEDS: **hydrALAZINE** 50 MG TAB PO SCH ×3 (06:06→17:52)
[2021-06-17] MEDS: METOCLOPRAMIDE INJ 10MG/2ML VIAL (J2765 PER 1) IV SCH ×4 (06:06→22:36)
[2021-06-17 07:28] LABS: HEMATOCRIT 38.6 % (36.0-47.0); HEMOGLOBIN 13.5 g/dl (12.0-15.5); MEAN CORPUSCULAR VOLUME 88.5 fl (80.0-96.0); PLATELET COUNT, AUTOMATED 215 10^3/uL (150-450); RED BLOOD COUNT 4.36 10^6/uL (4.00-5.40); WHITE BLOOD COUNT 7.3 10^3/uL (4.0-10.0)
[2021-06-17 07:50] LABS: BLOOD UREA NITROGEN 16 MG/DL (7-18); CALCIUM LEVEL 8.7 MG/DL (8.8-10.2); CARBON DIOXIDE LEVEL 25 MEQ/L (21-32); CHLORIDE LEVEL 105 MEQ/L (98-107); CREATININE FOR GFR 0.67 MG/DL (0.55-1.30); GLOMERULAR FILTRATION RATE > 60.0 (>45); GLUCOSE, FASTING 112 MG/DL (70-100); MAGNESIUM LEVEL 1.7 MG/DL (1.8-2.4); POTASSIUM SERUM 4.3 MEQ/L (3.5-5.1); SODIUM LEVEL 137 MEQ/L (136-145)
[2021-06-17] MEDS ORDERED: MAG SULF 1GM/100ML (MAG RUN) 1 GM in IV 1 EA IV ONE (08:30)
[2021-06-17] MEDS: PANTOPRAZOLE 40MG VIAL IV SCH (09:00)
[2021-06-17] MEDS: CARVedilol 12.5 MG TAB PO SCH ×2 (09:02→22:39)
[2021-06-17] MEDS: POTASSIUM CHLORIDE 10MEQ SR TABLET PO SCH (09:02)
[2021-06-17] MEDS: SIMETHICONE 80MG CHEW TAB PO SCH ×4 (09:02→20:54)
[2021-06-18] VITALS (7 sets, daily range): BP systolic 114–168; BP diastolic 58–74; O2SAT 94–97
[2021-06-18] MEDS: **hydrALAZINE** 50 MG TAB PO SCH ×2 (00:52→06:05)
[2021-06-18] MEDS: KETOROLAC 30 MG/ML 1ML VIAL IV SCH ×4 (03:59→20:27)
[2021-06-18] MEDS: METOCLOPRAMIDE INJ 10MG/2ML VIAL (J2765 PER 1) IV SCH ×3 (04:02→17:33)
[2021-06-18 06:41] LABS: BASO % 0.1 % (0.0-1.0); EOS % 0.4 % (0.0-3.0); HEMATOCRIT 37.2 % (36.0-47.0); HEMOGLOBIN 12.9 g/dl (12.0-15.5); LYMPH # 1.1 10^3/uL (1.5-5.0); MEAN CORPUSCULAR HEMOGLOBIN 30.5 pg (27.0-33.0); MEAN CORPUSCULAR HGB CONC 34.7 g/dl (32.0-36.5); MEAN CORPUSCULAR VOLUME 87.9 fl (80.0-96.0); MONO # 0.8 10^3/uL (0.0-0.8); MONO % 11.5 % (2.0-8.0); PLATELET COUNT, AUTOMATED 216 10^3/uL (150-450); RED BLOOD COUNT 4.23 10^6/uL (4.00-5.40); WHITE BLOOD COUNT 7.1 10^3/uL (4.0-10.0)
[2021-06-18 07:09] LABS: BLOOD UREA NITROGEN 19 MG/DL (7-18); CALCIUM LEVEL 8.2 MG/DL (8.8-10.2); CARBON DIOXIDE LEVEL 27 MEQ/L (21-32); CHLORIDE LEVEL 106 MEQ/L (98-107); CREATININE FOR GFR 0.73 MG/DL (0.55-1.30); GLOMERULAR FILTRATION RATE > 60.0 (>45); GLUCOSE, FASTING 92 MG/DL (70-100); MAGNESIUM LEVEL 2.1 MG/DL (1.8-2.4); POTASSIUM SERUM 4.2 MEQ/L (3.5-5.1); SODIUM LEVEL 138 MEQ/L (136-145)
[2021-06-18] MEDS: PANTOPRAZOLE 40MG VIAL IV SCH (08:33)
[2021-06-18] MEDS: POTASSIUM CHLORIDE 10MEQ SR TABLET PO SCH (08:33)
[2021-06-18] MEDS: SIMETHICONE 80MG CHEW TAB PO SCH ×4 (08:33→20:25)
[2021-06-18] MEDS: CARVedilol 12.5 MG TAB PO SCH ×2 (08:34→20:27)
[2021-06-18] MEDS: **hydrALAZINE HCL** 25 MG TAB PO SCH ×2 (12:00→17:34)
[2021-06-18] MEDS: APIXABAN 5 MG TAB (ELIQUIS) PO SCH (20:27)
[2021-06-19] VITALS: O2SAT 95
[2021-06-19 00:03] VITALS: BP 139/63
[2021-06-19 04:00] VITALS: O2SAT 96
[2021-06-19] MEDS: KETOROLAC 30 MG/ML 1ML VIAL IV SCH ×2 (04:23→09:22)
[2021-06-19 05:23] VITALS: BP 172/76
[2021-06-19] MEDS: **hydrALAZINE HCL** 25 MG TAB PO SCH ×2 (05:26)
[2021-06-19] MEDS: METOCLOPRAMIDE INJ 10MG/2ML VIAL (J2765 PER 1) IV SCH ×3 (05:26→09:20)
[2021-06-19 07:20] LABS: BASO % 0.4 % (0.0-1.0); EOS # 0.1 10^3/uL (0.0-0.5); EOS % 2.2 % (0.0-3.0); HEMATOCRIT 36.4 % (36.0-47.0); HEMOGLOBIN 12.6 g/dl (12.0-15.5); LYMPH # 1.6 10^3/uL (1.5-5.0); LYMPH % 32.7 % (24.0-44.0); MEAN CORPUSCULAR HEMOGLOBIN 30.7 pg (27.0-33.0); MEAN CORPUSCULAR HGB CONC 34.6 g/dl (32.0-36.5); MEAN CORPUSCULAR VOLUME 88.8 fl (80.0-96.0); MONO # 0.8 10^3/uL (0.0-0.8); MONO % 15.8 % (2.0-8.0); NEUTROPHILS # 2.4 10^3/uL (1.5-8.5); NEUTROPHILS % 47.9 % (36.0-66.0); PLATELET COUNT, AUTOMATED 190 10^3/uL (150-450)
[2021-06-19 07:40] LABS: BLOOD UREA NITROGEN 16 MG/DL (7-18); CALCIUM LEVEL 8.2 MG/DL (8.8-10.2); CARBON DIOXIDE LEVEL 27 MEQ/L (21-32); CHLORIDE LEVEL 107 MEQ/L (98-107); CREATININE FOR GFR 0.68 MG/DL (0.55-1.30); GLOMERULAR FILTRATION RATE > 60.0 (>45); GLUCOSE, FASTING 90 MG/DL (70-100); POTASSIUM SERUM 4.2 MEQ/L (3.5-5.1); SODIUM LEVEL 138 MEQ/L (136-145)
[2021-06-19 09:14] VITALS: BP 158/70
[2021-06-19] MEDS: PANTOPRAZOLE 40MG VIAL IV SCH (09:22)
[2021-06-19] MEDS: POTASSIUM CHLORIDE 10MEQ SR TABLET PO SCH (09:24)
[2021-06-19] MEDS: APIXABAN 5 MG TAB (ELIQUIS) PO SCH (09:24)
[2021-06-19 09:25] VITALS: BP 158/70
[2021-06-19] MEDS: CARVedilol 12.5 MG TAB PO SCH (09:25)
[2021-06-19] MEDS: SIMETHICONE 80MG CHEW TAB PO SCH (09:26)
[2021-06-19] MEDS ORDERED: ACET325C5 PO (13:17)
[2021-06-19] MEDS ORDERED: PERC5TAB12 PO (13:17)
== END 2021-06-19 13:35 | disposition home or self-care (01) | DRG 326 ==
LOC: M MSPAV 15:50 → M PCU 20:49 → M 4MAIN 06-13 21:50
PROVIDERS: ADMIT General Practice; ATTEND Internal Medicine Nephrology
PROC: 0WUF4JZ Supplement Abdominal Wall with Synthetic Substitute, Percutaneous Endoscopic Approach (ICD-10-PCS; 2021-06-16)
PROC: 8E0W4CZ Robotic Assisted Procedure of Trunk Region, Percutaneous Endoscopic Approach (ICD-10-PCS; 2021-06-16)
PROC: 0DS64ZZ Reposition Stomach, Percutaneous Endoscopic Approach (ICD-10-PCS; principal; 2021-06-16 13:30)
DX: K56.2 Volvulus (principal); U07.1 COVID-19; I48.0 Paroxysmal atrial fibrillation; I10 Essential (primary) hypertension; K43.9 Ventral hernia without obstruction or gangrene; Z79.01 Long term (current) use of anticoagulants; Z96.653 Presence of artificial knee joint, bilateral; E66.01 Morbid (severe) obesity due to excess calories; Z92.21 Personal history of antineoplastic chemotherapy; Z85.43 Personal history of malignant neoplasm of ovary; I16.0 Hypertensive urgency; Z79.899 Other long term (current) drug therapy; Z88.5 Allergy status to narcotic agent; Z88.8 Allergy status to other drugs, medicaments and biological substances; K57.30 Diverticulosis of large intestine without perforation or abscess without bleeding; C50.919 Malignant neoplasm of unspecified site of unspecified female breast

== ENCOUNTER → 2021-07-15 | Outpatient (REF) | payer MEDICARE, OTHER ==
[~2021-07-15] MED LIST changes: +ACET325C5 PO; +ANAS1TAB2 PO; +CALC600T60 PO; +FURO40TA2 PO; +OMEP-173 PO; +PERC5TAB12 PO
== END ==
LOC: M LABDRAWC 11:22
PROVIDERS: ATTEND Obstetrics & Gynecology Gynecologic Oncology
DX: C56.2 Malignant neoplasm of left ovary (principal)

== ENCOUNTER → 2021-09-12 | Outpatient (CLI) | payer MEDICARE, OTHER | LOC: M RAD 12:00 | PROVIDERS: ATTEND Physician Assistant | DX: N23 Unspecified renal colic (principal); N20.0 Calculus of kidney; K43.9 Ventral hernia without obstruction or gangrene ==

== ENCOUNTER → 2021-10-03 | Outpatient (REF) | payer MEDICARE, OTHER ==
[2021-10-03 11:31] LABS: HEMATOCRIT 43.8 % (36.0-47.0); HEMOGLOBIN 14.3 g/dl (12.0-15.5); MEAN CORPUSCULAR HEMOGLOBIN 30.2 pg (27.0-33.0); MEAN CORPUSCULAR HGB CONC 32.6 g/dl (32.0-36.5); MEAN CORPUSCULAR VOLUME 92.4 fl (80.0-96.0); PLATELET COUNT, AUTOMATED 226 10^3/uL (150-450); RED BLOOD COUNT 4.74 10^6/uL (4.00-5.40); WHITE BLOOD COUNT 4.2 10^3/uL (4.0-10.0)
[2021-10-03 11:33] LABS: APPEARANCE, URINE CLEAR (CLEAR); BACTERIA, URINE AUTO NEGATIVE (NEGATIVE); BILIRUBIN, URINE AUTO NEGATIVE (NEGATIVE); BLOOD, URINE BLOOD 1+ (NEGATIVE); COLOR, URINE YELLOW (YELLOW); GLUCOSE, URINE (UA) AUTO NEGATIVE (NEGATIVE); KETONE, URINE AUTO NEGATIVE (NEGATIVE); LEUKOCYTE ESTERASE, URINE AUTO NEGATIVE (NEGATIVE); MUCUS, URINE SMALL (NEGATIVE); NITRITE, URINE AUTO NEGATIVE (NEGATIVE); PROTEIN, URINE AUTO NEGATIVE (NEGATIVE); RBC, URINE AUTO 3 /HPF (0-3); SPECIFIC GRAVITY URINE AUTO 1.019 (1.002-1.035); SQUAMOUS EPITHELIAL CELL UR AU 0 /HPF (0-6); UROBILINOGEN, URINE AUTO 0.2 mg/dL (0.0-2.0); WBC, URINE AUTO 1 /HPF (0-3)
[2021-10-03 15:31] LABS: ALT/SGPT 30 U/L (12-78); BILIRUBIN,TOTAL 0.8 MG/DL (0.2-1.0); BLOOD UREA NITROGEN 23 MG/DL (7-18); CALCIUM LEVEL 9.2 MG/DL (8.8-10.2); CARBON DIOXIDE LEVEL 29 MEQ/L (21-32); CHLORIDE LEVEL 104 MEQ/L (98-107); CHOLESTEROL LEVEL 176 MG/DL (<200); CREATININE FOR GFR 0.92 MG/DL (0.55-1.30); GLOMERULAR FILTRATION RATE > 60.0 (>45); GLUCOSE, FASTING 129 MG/DL (70-100); HDL CHOLESTEROL 64 MG/DL (>40); LDL CHOLESTEROL 88 MG/DL (<100); NON-HDL-C 112 MG/DL; POTASSIUM SERUM 4.5 MEQ/L (3.5-5.1); PTH INTACT 46.1 PG/ML (18.5-88.0); SODIUM LEVEL 137 MEQ/L (136-145); TRIGLYCERIDES LEVEL 122 MG/DL (<150)
[2021-10-03 15:32] LABS: ALBUMIN 3.7 GM/DL (3.2-5.2); TOTAL 25(OH) VITAMIN D 44.1 NG/ML (30.0-100.0); TOTAL PROTEIN 6.7 GM/DL (6.4-8.2)
== END ==
LOC: M SFHCCLAY 07:58
PROVIDERS: ATTEND Family Medicine
DX: N20.0 Calculus of kidney (principal); I10 Essential (primary) hypertension; E78.00 Pure hypercholesterolemia, unspecified; T38.6X5A Adverse effect of antigonadotrophins, antiestrogens, antiandrogens, not elsewhere classified, initial encounter

== ENCOUNTER → 2021-10-19 | Outpatient (REF) | payer MEDICARE, OTHER | LOC: M LABDRAWC 11:20 | PROVIDERS: ATTEND Nurse Practitioner | DX: C56.2 Malignant neoplasm of left ovary (principal) ==

== ENCOUNTER → 2022-01-12 | Outpatient (REF) | payer MEDICARE, OTHER | LOC: M LABDRAWC 11:25 | PROVIDERS: ATTEND Obstetrics & Gynecology Gynecologic Oncology | DX: C56.2 Malignant neoplasm of left ovary (principal) ==

== ENCOUNTER → 2022-02-01 | Outpatient (REF) | payer MEDICARE, OTHER ==
[2022-02-01 21:08] LABS: HEMOGLOBIN A1c 5.5 %
== END ==
LOC: M SFHCCLAY 14:00
PROVIDERS: ATTEND Family Medicine
DX: R73.01 Impaired fasting glucose (principal)

== ENCOUNTER 2022-11-20 13:20 | Day surgery (SDC) | payer MEDICARE, OTHER ==
[~2022-11-20] VITALS: Ht 165.1 cm; Wt 101.8 kg
[~2022-11-20 13:20] MED LIST changes: +CHLO125TA PO; +CITRTAB18 PO; -DILT1CAP5 PO; +DILT240C41 PO; +LISI10TA22 PO; +NS 1,000 ML IV ONE; +POTA-298 PO; -POTA1TAB14 PO
[2022-11-20] MEDS ORDERED: propofoL 200 MG/20 ML VIAL As Ordered ONE ×2 (15:33→15:34)
[2022-11-20] MEDS ORDERED: fentaNYL 100 MCG/2 ML INJECTION As Ordered ONE (15:34)
[2022-11-20] MEDS ORDERED: LIDOCAINE 2% 100MG/5ML SDV (FOR ANES.) As Ordered ONE (15:35)
[2022-11-20 16:21] VITALS: TEMP 97
[2022-11-20 16:30] VITALS: BP 144/85; O2SAT 97
== END 2022-11-20 16:45 | disposition home or self-care (01) ==
LOC: M OPP 13:20
PROVIDERS: ATTEND Internal Medicine Gastroenterology
DX: Z12.11 Encounter for screening for malignant neoplasm of colon (principal); Z15.09 Genetic susceptibility to other malignant neoplasm; K64.0 First degree hemorrhoids; K57.30 Diverticulosis of large intestine without perforation or abscess without bleeding; K44.9 Diaphragmatic hernia without obstruction or gangrene; K31.89 Other diseases of stomach and duodenum; Z79.01 Long term (current) use of anticoagulants; Z79.02 Long term (current) use of antithrombotics/antiplatelets; Z79.83 Long term (current) use of bisphosphonates; Z79.84 Long term (current) use of oral hypoglycemic drugs; Z79.899 Other long term (current) drug therapy; Z88.5 Allergy status to narcotic agent
CPT/HCPCS: 43239; 88305; G0105; J3010

== ENCOUNTER → 2023-01-25 | Outpatient (REF) | payer MEDICARE, OTHER ==
[~2023-01-25] MED LIST changes: -NS 1,000 ML IV ONE
== END ==
LOC: M LABDRAWC 11:25
PROVIDERS: ATTEND Nurse Practitioner
DX: C56.2 Malignant neoplasm of left ovary (principal)

== ENCOUNTER → 2023-02-23 | Outpatient (REF) | payer MEDICARE, OTHER ==
[2023-02-23 18:48] LABS: APPEARANCE, URINE HAZY (CLEAR); BACTERIA, URINE AUTO NEGATIVE (NEGATIVE); BILIRUBIN, URINE AUTO NEGATIVE (NEGATIVE); BLOOD, URINE BLOOD 1+ (NEGATIVE); COLOR, URINE YELLOW (YELLOW); GLUCOSE, URINE (UA) AUTO NEGATIVE (NEGATIVE); KETONE, URINE AUTO NEGATIVE (NEGATIVE); LEUKOCYTE ESTERASE, URINE AUTO TRACE (NEGATIVE); MUCUS, URINE SMALL (NEGATIVE); NITRITE, URINE AUTO NEGATIVE (NEGATIVE); PROTEIN, URINE AUTO 1+ mg/dL (NEGATIVE); RBC, URINE AUTO 42 /HPF (0-3); SPECIFIC GRAVITY URINE AUTO 1.017 (1.002-1.035); SQUAMOUS EPITHELIAL CELL UR AU 2 /HPF (0-6); UROBILINOGEN, URINE AUTO 0.2 mg/dL (0.0-2.0); WBC, URINE AUTO 2 /HPF (0-3)
[2023-02-23 18:56] LABS: BASO % 0.6 % (0.0-1.0); EOS # 0.1 10^3/uL (0.0-0.5); EOS % 1.6 % (0.0-3.0); HEMOGLOBIN 11.5 g/dl (12.0-15.5); LYMPH % 19.3 % (24.0-44.0); MEAN CORPUSCULAR HGB CONC 31.9 g/dl (32.0-36.5); MEAN CORPUSCULAR VOLUME 90.9 fl (80.0-96.0); MONO # 0.7 10^3/uL (0.0-0.8); MONO % 13.1 % (2.0-8.0); NEUTROPHILS # 3.3 10^3/uL (1.5-8.5); PLATELET COUNT, AUTOMATED 360 10^3/uL (150-450); RED BLOOD COUNT 3.96 10^6/uL (4.00-5.40); WHITE BLOOD COUNT 5.1 10^3/uL (4.0-10.0)
[2023-02-23 19:07] LABS: HEMOGLOBIN A1c 6.1 % (4.0-6.0)
[2023-02-23 19:20] LABS: ALBUMIN 2.8 G/DL (3.2-5.2); ALKALINE PHOSPHATASE 63 U/L (46-116); ALT/SGPT 16 U/L (7.0-40); AST/SGOT 13 U/L (<34); BILIRUBIN,TOTAL 0.6 MG/DL (0.3-1.2); BLOOD UREA NITROGEN 21 MG/DL (9-23); CARBON DIOXIDE LEVEL 32 MMOL/L (20-31); CHLORIDE LEVEL 98 MMOL/L (98-107); CHOLESTEROL LEVEL 146 MG/DL (<200); CHOLESTEROL RISK RATIO 2.61 (<5); CREATININE FOR GFR 0.77 MG/DL (0.55-1.30); GLOMERULAR FILTRATION RATE > 60.0 (>45); GLUCOSE, FASTING 131 MG/DL (74-106); HDL CHOLESTEROL 55.8 MG/DL (>40); LDL CHOLESTEROL 76.4 MG/DL (<100); NON-HDL-C 90.2 MG/DL; POTASSIUM SERUM 4.1 MMOL/L (3.5-5.1); SODIUM LEVEL 135 MMOL/L (136-145); TOTAL PROTEIN 6.5 G/DL (5.7-8.2); TRIGLYCERIDES LEVEL 69 MG/DL (<150)
== END ==
LOC: M SFHCCLAY 10:07
PROVIDERS: ATTEND Family Medicine
DX: I10 Essential (primary) hypertension (principal); I35.8 Other nonrheumatic aortic valve disorders; R73.03 Prediabetes; E78.00 Pure hypercholesterolemia, unspecified; Z96.653 Presence of artificial knee joint, bilateral; Z15.09 Genetic susceptibility to other malignant neoplasm

== ENCOUNTER → 2023-03-13 | Outpatient (REF) | payer MEDICARE, OTHER ==
[2023-03-13 15:00] LABS: APPEARANCE, URINE CLEAR (CLEAR); BACTERIA, URINE AUTO NEGATIVE (NEGATIVE); BILIRUBIN, URINE AUTO NEGATIVE (NEGATIVE); BLOOD, URINE BLOOD NEGATIVE (NEGATIVE); COLOR, URINE YELLOW (YELLOW); GLUCOSE, URINE (UA) AUTO NEGATIVE (NEGATIVE); KETONE, URINE AUTO NEGATIVE (NEGATIVE); LEUKOCYTE ESTERASE, URINE AUTO NEGATIVE (NEGATIVE); MUCUS, URINE SMALL (NEGATIVE); NITRITE, URINE AUTO NEGATIVE (NEGATIVE); PROTEIN, URINE AUTO NEGATIVE (NEGATIVE); RBC, URINE AUTO 2 /HPF (0-3); SQUAMOUS EPITHELIAL CELL UR AU 0 /HPF (0-6); UROBILINOGEN, URINE AUTO 0.2 mg/dL (0.0-2.0); WBC, URINE AUTO 2 /HPF (0-3)
[2023-03-13 15:01] LABS: HEMATOCRIT 34.4 % (36.0-47.0); MEAN CORPUSCULAR HEMOGLOBIN 28.6 pg (27.0-33.0); MEAN CORPUSCULAR VOLUME 89.4 fl (80.0-96.0); PLATELET COUNT, AUTOMATED 367 10^3/uL (150-450); RED BLOOD COUNT 3.85 10^6/uL (4.00-5.40)
[2023-03-13 15:08] LABS: FOLATE 9.8 NG/ML (>5.4)
[2023-03-13 15:11] LABS: PERCENT SATURATION 14.6 % (13.2-45.0)
== END ==
LOC: M SFHCCLAY 08:11
PROVIDERS: ATTEND Family Medicine
DX: R31.29 Other microscopic hematuria (principal); D64.9 Anemia, unspecified

== ENCOUNTER → 2023-04-26 | Outpatient (REF) | payer MEDICARE, OTHER ==
[2023-04-26 13:03] LABS: HEMATOCRIT 35.4 % (36.0-47.0); HEMOGLOBIN 11.1 g/dl (12.0-15.5); MEAN CORPUSCULAR HEMOGLOBIN 27.2 pg (27.0-33.0); MEAN CORPUSCULAR HGB CONC 31.4 g/dl (32.0-36.5); MEAN CORPUSCULAR VOLUME 86.8 fl (80.0-96.0); PLATELET COUNT, AUTOMATED 364 10^3/uL (150-450); RED BLOOD COUNT 4.08 10^6/uL (4.00-5.40); WHITE BLOOD COUNT 6.7 10^3/uL (4.0-10.0)
[2023-04-26 13:30] LABS: PERCENT SATURATION 14.1 % (13.2-45.0)
== END ==
LOC: M SFHCCLAY 08:54
PROVIDERS: ATTEND Family Medicine
DX: D64.9 Anemia, unspecified (principal)

== ENCOUNTER → 2023-05-21 | Outpatient (REF) | payer MEDICARE, OTHER ==
[2023-05-21 12:11] LABS: BASO % 0.5 % (0.0-1.0); EOS # 0.1 10^3/uL (0.0-0.5); EOS % 1.4 % (0.0-3.0); HEMATOCRIT 38.1 % (36.0-47.0); HEMOGLOBIN 12.2 g/dl (12.0-15.5); LYMPH # 1.4 10^3/uL (1.5-5.0); LYMPH % 21.5 % (24.0-44.0); MEAN CORPUSCULAR HEMOGLOBIN 27.9 pg (27.0-33.0); MONO # 0.7 10^3/uL (0.0-0.8); MONO % 10.9 % (2.0-8.0); NEUTROPHILS # 4.3 10^3/uL (1.5-8.5); NEUTROPHILS % 65.4 % (36.0-66.0); PLATELET COUNT, AUTOMATED 370 10^3/uL (150-450); RED BLOOD COUNT 4.38 10^6/uL (4.00-5.40); WHITE BLOOD COUNT 6.6 10^3/uL (4.0-10.0)
[2023-05-21 12:16] LABS: ALBUMIN 3.1 G/DL (3.2-5.2); ALKALINE PHOSPHATASE 72 U/L (46-116); ALT/SGPT 13 U/L (7.0-40); AST/SGOT 9 U/L (<34); BILIRUBIN,TOTAL 0.3 MG/DL (0.3-1.2); BLOOD UREA NITROGEN 23 MG/DL (9-23); CALCIUM LEVEL 9.4 MG/DL (8.3-10.6); CARBON DIOXIDE LEVEL 33 MMOL/L (20-31); CHLORIDE LEVEL 100 MMOL/L (98-107); CREATININE FOR GFR 0.74 MG/DL (0.55-1.30); GLOMERULAR FILTRATION RATE > 60.0 (>39); GLUCOSE, FASTING 142 MG/DL (74-106); POTASSIUM SERUM 4.1 MMOL/L (3.5-5.1); SODIUM LEVEL 137 MMOL/L (136-145); TOTAL PROTEIN 6.9 G/DL (5.7-8.2)
== END ==
LOC: M LABDRAWC 11:15
PROVIDERS: ATTEND Internal Medicine Hematology & Oncology
DX: C50.312 Malignant neoplasm of lower-inner quadrant of left female breast (principal); Z17.0 Estrogen receptor positive status [ER+]

== ENCOUNTER → 2023-05-28 | Outpatient (CLI) | payer MEDICARE, OTHER ==
[~2023-05-28] MED LIST changes: +ISOVUE-370 76% 100ML VIAL As Ordered ONE
== END ==
LOC: M RAD 13:29
PROVIDERS: ATTEND Internal Medicine Hematology & Oncology
DX: Z15.09 Genetic susceptibility to other malignant neoplasm (principal); Z12.73 Encounter for screening for malignant neoplasm of ovary; N20.0 Calculus of kidney; K57.30 Diverticulosis of large intestine without perforation or abscess without bleeding; K43.9 Ventral hernia without obstruction or gangrene; I70.0 Atherosclerosis of aorta
CPT/HCPCS: 74177; Q9967

== ENCOUNTER → 2023-07-27 | Outpatient (CLI) | payer MEDICARE, OTHER ==
[~2023-07-27] MED LIST changes: -ISOVUE-370 76% 100ML VIAL As Ordered ONE
[2023-07-27 17:47] LABS: BASO % 0.5 % (0.0-1.0); EOS # 0.1 10^3/uL (0.0-0.5); EOS % 0.8 % (0.0-3.0); HEMATOCRIT 36.5 % (36.0-47.0); HEMOGLOBIN 11.5 g/dl (12.0-15.5); LYMPH # 1.3 10^3/uL (1.5-5.0); LYMPH % 20.4 % (24.0-44.0); MEAN CORPUSCULAR HEMOGLOBIN 27.8 pg (27.0-33.0); MEAN CORPUSCULAR HGB CONC 31.5 g/dl (32.0-36.5); MEAN CORPUSCULAR VOLUME 88.2 fl (80.0-96.0); MONO # 0.8 10^3/uL (0.0-0.8); MONO % 12.4 % (2.0-8.0); NEUTROPHILS # 4.1 10^3/uL (1.5-8.5); NEUTROPHILS % 65.6 % (36.0-66.0); PLATELET COUNT, AUTOMATED 375 10^3/uL (150-450); RED BLOOD COUNT 4.14 10^6/uL (4.00-5.40); WHITE BLOOD COUNT 6.3 10^3/uL (4.0-10.0)
[2023-07-27 18:00] LABS: HEMOGLOBIN A1c 5.6 % (4.0-6.0)
[2023-07-27 18:18] LABS: ALBUMIN 2.8 G/DL (3.2-5.2); ALKALINE PHOSPHATASE 66 U/L (46-116); ALT/SGPT 15 U/L (7.0-40); AST/SGOT 8 U/L (<34); BILIRUBIN,TOTAL 0.4 MG/DL (0.3-1.2); BLOOD UREA NITROGEN 19 MG/DL (9-23); CALCIUM LEVEL 9.1 MG/DL (8.3-10.6); CARBON DIOXIDE LEVEL 34 MMOL/L (20-31); CHLORIDE LEVEL 100 MMOL/L (98-107); CREATININE FOR GFR 0.67 MG/DL (0.55-1.30); GLOMERULAR FILTRATION RATE > 60.0 (>39); GLUCOSE, FASTING 151 MG/DL (74-106); IRON (FE) 31 UG/DL (50-170); PERCENT SATURATION 13.5 % (13.2-45.0); POTASSIUM SERUM 4.1 MMOL/L (3.5-5.1); SODIUM LEVEL 138 MMOL/L (136-145); TOTAL IRON BINDING CAPACITY 230 UG/DL (250-425); TOTAL PROTEIN 6.8 G/DL (5.7-8.2)
== END ==
LOC: M CLY 12:00
PROVIDERS: ATTEND Family Medicine
DX: I35.8 Other nonrheumatic aortic valve disorders (principal); I10 Essential (primary) hypertension; R73.03 Prediabetes; E78.00 Pure hypercholesterolemia, unspecified; Z96.653 Presence of artificial knee joint, bilateral; D64.9 Anemia, unspecified

== ENCOUNTER → 2023-07-27 | Outpatient (CLI) | payer MEDICARE, OTHER | LOC: M CLY 12:10 | PROVIDERS: ATTEND Family Medicine | DX: M89.8X6 Other specified disorders of bone, lower leg (principal) ==

== ENCOUNTER → 2023-08-27 | Outpatient (REF) | payer MEDICARE, OTHER ==
[2023-08-27 12:07] LABS: HEMOGLOBIN 11.8 g/dl (12.0-15.5); MEAN CORPUSCULAR HEMOGLOBIN 28.4 pg (27.0-33.0); MEAN CORPUSCULAR HGB CONC 32.8 g/dl (32.0-36.5); MEAN CORPUSCULAR VOLUME 86.7 fl (80.0-96.0); PLATELET COUNT, AUTOMATED 356 10^3/uL (150-450); RED BLOOD COUNT 4.15 10^6/uL (4.00-5.40); WHITE BLOOD COUNT 6.2 10^3/uL (4.0-10.0)
[2023-08-27 12:10] LABS: CHOLESTEROL RISK RATIO 2.64 (<5); HDL CHOLESTEROL 53.4 MG/DL (>40); LDL CHOLESTEROL 71.6 MG/DL (<100); NON-HDL-C 87.6 MG/DL; PERCENT SATURATION 16.1 % (13.2-45.0)
== END ==
LOC: M SFHCCLAY 07:58
PROVIDERS: ATTEND Family Medicine
DX: D64.9 Anemia, unspecified (principal); I35.8 Other nonrheumatic aortic valve disorders; I10 Essential (primary) hypertension; R73.03 Prediabetes; E78.00 Pure hypercholesterolemia, unspecified; Z96.653 Presence of artificial knee joint, bilateral

== ENCOUNTER → 2023-10-02 | Outpatient (REF) | payer MEDICARE, OTHER ==
[2023-10-02 11:42] LABS: HEMATOCRIT 35.5 % (36.0-47.0); HEMOGLOBIN 11.6 g/dl (12.0-15.5); MEAN CORPUSCULAR HEMOGLOBIN 28.4 pg (27.0-33.0); MEAN CORPUSCULAR HGB CONC 32.7 g/dl (32.0-36.5); MEAN CORPUSCULAR VOLUME 86.8 fl (80.0-96.0); PLATELET COUNT, AUTOMATED 368 10^3/uL (150-450); RED BLOOD COUNT 4.09 10^6/uL (4.00-5.40); WHITE BLOOD COUNT 6.4 10^3/uL (4.0-10.0)
[2023-10-02 12:20] LABS: PERCENT SATURATION 12.8 % (13.2-45.0)
== END ==
LOC: M SFHCCLAY 07:52
PROVIDERS: ATTEND Family Medicine
DX: D50.9 Iron deficiency anemia, unspecified (principal)

== ENCOUNTER → 2023-12-12 | Outpatient (REF) | payer MEDICARE, OTHER ==
[2023-12-12 18:18] LABS: HEMATOCRIT 36.1 % (36.0-47.0); HEMOGLOBIN 11.2 g/dl (12.0-15.5); MEAN CORPUSCULAR HEMOGLOBIN 27.1 pg (27.0-33.0); MEAN CORPUSCULAR VOLUME 87.4 fl (80.0-96.0); PLATELET COUNT, AUTOMATED 400 10^3/uL (150-450); RED BLOOD COUNT 4.13 10^6/uL (4.00-5.40); WHITE BLOOD COUNT 7.9 10^3/uL (4.0-10.0)
[2023-12-12 18:47] LABS: BLOOD UREA NITROGEN 23 MG/DL (9-23); CALCIUM LEVEL 9.4 MG/DL (8.3-10.6); CARBON DIOXIDE LEVEL 32 MMOL/L (20-31); CHLORIDE LEVEL 99 MMOL/L (98-107); CREATININE FOR GFR 0.63 MG/DL (0.55-1.30); GLOMERULAR FILTRATION RATE > 60.0 (>39); GLUCOSE, FASTING 133 MG/DL (74-106); IRON (FE) 23 UG/DL (50-170); PERCENT SATURATION 11.1 % (13.2-45.0); POTASSIUM SERUM 4.1 MMOL/L (3.5-5.1); SODIUM LEVEL 137 MMOL/L (136-145); TOTAL IRON BINDING CAPACITY 208 UG/DL (250-425)
== END ==
LOC: M SFHCCLAY 09:30
PROVIDERS: ATTEND Family Medicine
DX: Z01.818 Encounter for other preprocedural examination (principal); N20.0 Calculus of kidney; D50.9 Iron deficiency anemia, unspecified

== ENCOUNTER → 2024-01-04 | Outpatient (REF) | payer MEDICARE, OTHER ==
[2024-01-04 13:32] LABS: BASO % 0.6 % (0.0-1.0); EOS # 0.1 10^3/uL (0.0-0.5); EOS % 1.7 % (0.0-3.0); HEMATOCRIT 35.6 % (36.0-47.0); HEMOGLOBIN 11.3 g/dl (12.0-15.5); LYMPH # 1.3 10^3/uL (1.5-5.0); LYMPH % 24.2 % (24.0-44.0); MEAN CORPUSCULAR HEMOGLOBIN 27.8 pg (27.0-33.0); MEAN CORPUSCULAR HGB CONC 31.7 g/dl (32.0-36.5); MEAN CORPUSCULAR VOLUME 87.7 fl (80.0-96.0); MONO # 0.7 10^3/uL (0.0-0.8); MONO % 12.8 % (2.0-8.0); NEUTROPHILS # 3.3 10^3/uL (1.5-8.5); PLATELET COUNT, AUTOMATED 374 10^3/uL (150-450); RED BLOOD COUNT 4.06 10^6/uL (4.00-5.40); WHITE BLOOD COUNT 5.5 10^3/uL (4.0-10.0)
[2024-01-04 14:22] LABS: PERCENT SATURATION 18.3 % (13.2-45.0)
[2024-01-04 14:24] LABS: FERRITIN 1246.9 NG/ML (7.3-270.7); FOLATE 5.7 NG/ML (>5.4)
[2024-01-07 12:07] LABS: HAPTOGLOBIN 370 mg/dL (43-212)
[2024-01-08 01:32] LABS: TISSUE TRANSGLUTAMINASE IgA < 1.0 U/mL (<15.0)
== END ==
LOC: M LABDRAWC 12:01
PROVIDERS: ATTEND Internal Medicine Gastroenterology
DX: D50.9 Iron deficiency anemia, unspecified (principal)

== ENCOUNTER → 2024-01-28 | Outpatient (REF) | payer MEDICARE, OTHER | LOC: M LABDRAWC 11:23 | PROVIDERS: ATTEND Nurse Practitioner | DX: C56.2 Malignant neoplasm of left ovary (principal) ==

== ENCOUNTER → 2024-02-29 | Outpatient (CLI) | payer MEDICARE, OTHER ==
[~2024-02-29] VITALS: Ht 162.6 cm; Wt 93.6 kg
[~2024-02-29] MED LIST changes: +ALBUTEROL SULFATE 2.5MG/0.5ML INH NEB SOLN INH PRN; +EPINEPHrine INJ 1 MG/ML 1ML AMP IM PRN; +NS 1,000 ML IV SCH; +diphenhydrAMINE 50MG/ML VIAL IV PRN; +methylPREDNISolone 125MG 2ML VIAL IV PRN
[2024-02-29 11:55] VITALS: BP 160/70; O2SAT 100
[2024-02-29] MEDS: IRON SUCROSE 300 MG in NS 250 ML OVER 90 MIN. IV ONE (12:12)
[2024-02-29 13:45] VITALS: BP 177/76; O2SAT 100
== END ==
LOC: M INFU 11:37
PROVIDERS: ATTEND Internal Medicine Hematology
DX: D50.9 Iron deficiency anemia, unspecified (principal); Z88.5 Allergy status to narcotic agent
CPT/HCPCS: 96365; 96366; J1756

== ENCOUNTER 2024-03-07 13:30 | Outpatient (CLI) | payer MEDICARE, OTHER ==
[~2024-03-07] VITALS: Ht 162.6 cm; Wt 93.6 kg
[2024-03-07 13:25] VITALS: BP 144/67; O2SAT 98
[~2024-03-07 13:30] MED LIST changes: +NS (Normal Saline) 0.9% 1,000 ML IV SCH; -NS 1,000 ML IV SCH
[2024-03-07] MEDS: IRON SUCROSE 300 MG in NS 250 ML OVER 90 MIN. IV ONE (14:03)
[2024-03-07 15:35] VITALS: BP 157/66; O2SAT 97
== END 2024-03-07 15:45 ==
LOC: M INFU 13:30
PROVIDERS: ATTEND Internal Medicine Hematology
DX: D64.9 Anemia, unspecified (principal); Z88.5 Allergy status to narcotic agent
CPT/HCPCS: 96365; J1756

== ENCOUNTER 2024-03-14 14:00 | Outpatient (CLI) | payer MEDICARE, OTHER ==
[~2024-03-14] VITALS: Ht 162.6 cm; Wt 93.6 kg
[2024-03-14 14:05] VITALS: BP 158/66; O2SAT 98
[2024-03-14] MEDS: IRON SUCROSE 300 MG in NS 250 ML OVER 90 MIN. IV ONE (14:44)
[2024-03-14 16:30] VITALS: BP 139/61; O2SAT 98
== END 2024-03-14 16:30 | disposition home or self-care (01) ==
LOC: M INFU 14:00
PROVIDERS: ATTEND Internal Medicine Hematology
DX: D64.9 Anemia, unspecified (principal); Z88.5 Allergy status to narcotic agent
CPT/HCPCS: 96365; 96366; J1756

== ENCOUNTER → 2024-05-06 | Outpatient (REF) | payer MEDICARE, OTHER ==
[~2024-05-06] MED LIST changes: -ALBUTEROL SULFATE 2.5MG/0.5ML INH NEB SOLN INH PRN; -EPINEPHrine INJ 1 MG/ML 1ML AMP IM PRN; -NS (Normal Saline) 0.9% 1,000 ML IV SCH; -diphenhydrAMINE 50MG/ML VIAL IV PRN; -methylPREDNISolone 125MG 2ML VIAL IV PRN
[2024-05-06 12:56] LABS: BASO % 0.6 % (0.0-1.0); EOS # 0.1 10^3/uL (0.0-0.5); EOS % 1.6 % (0.0-3.0); HEMATOCRIT 39.8 % (36.0-47.0); HEMOGLOBIN 12.8 g/dl (12.0-15.5); LYMPH # 1.6 10^3/uL (1.5-5.0); MEAN CORPUSCULAR HEMOGLOBIN 29.7 pg (27.0-33.0); MEAN CORPUSCULAR HGB CONC 32.2 g/dl (32.0-36.5); MEAN CORPUSCULAR VOLUME 92.3 fl (80.0-96.0); MONO # 0.8 10^3/uL (0.0-0.8); MONO % 11.2 % (2.0-8.0); NEUTROPHILS # 4.4 10^3/uL (1.5-8.5); NEUTROPHILS % 63.2 % (36.0-66.0); PLATELET COUNT, AUTOMATED 331 10^3/uL (150-450); RED BLOOD COUNT 4.31 10^6/uL (4.00-5.40)
[2024-05-06 13:48] LABS: PERCENT SATURATION 22.7 % (13.2-45.0)
[2024-05-06 13:51] LABS: FERRITIN 1208.9 NG/ML (7.3-270.7)
== END ==
LOC: M SFHCCLAY 08:10
PROVIDERS: ATTEND Nurse Practitioner Family
DX: D64.9 Anemia, unspecified (principal)

== ENCOUNTER → 2024-05-28 | Outpatient (CLI) | payer MEDICARE, OTHER ==
[~2024-05-28] MED LIST changes: +E-Z-PAQUE 96% w/w SUSP 176GM BTL As Ordered ONE
== END ==
LOC: M RAD 08:58
PROVIDERS: ATTEND Nurse Practitioner Family
DX: D50.9 Iron deficiency anemia, unspecified (principal)

== ENCOUNTER → 2024-11-11 | Outpatient (REF) | payer MEDICARE, OTHER ==
[~2024-11-11] MED LIST changes: -E-Z-PAQUE 96% w/w SUSP 176GM BTL As Ordered ONE; -PRAV20TA2 PO; +PRAV20TA78 PO
== END ==
LOC: M LAB REF 17:34
PROVIDERS: ATTEND Internal Medicine Gastroenterology
DX: K92.2 Gastrointestinal hemorrhage, unspecified (principal); Z15.09 Genetic susceptibility to other malignant neoplasm; Z80.0 Family history of malignant neoplasm of digestive organs; K57.30 Diverticulosis of large intestine without perforation or abscess without bleeding; D50.9 Iron deficiency anemia, unspecified

== ENCOUNTER → 2024-11-20 | Outpatient (CLI) | payer MEDICARE, OTHER | LOC: M SOG 07:21 | PROVIDERS: ATTEND Orthopaedic Surgery | DX: M79.644 Pain in right finger(s) (principal) ==

== ENCOUNTER → 2025-01-28 | Outpatient (REF) | payer MEDICARE, OTHER | LOC: M LABDRAWC 12:17 → M LAB REF 12:17 | PROVIDERS: ATTEND Nurse Practitioner | DX: C56.2 Malignant neoplasm of left ovary (principal) ==

== ENCOUNTER → 2025-02-03 | Outpatient (REF) | payer MEDICARE, OTHER | LOC: M LABDRAWC 12:10 | PROVIDERS: ATTEND Nurse Practitioner Family | DX: R30.0 Dysuria (principal) ==

== ENCOUNTER → 2025-02-18 | Outpatient (REF) | payer MEDICARE, OTHER ==
[2025-02-18 17:36] LABS: APPEARANCE, URINE HAZY (CLEAR); BACTERIA, URINE AUTO NEGATIVE (NEGATIVE); BILIRUBIN, URINE AUTO NEGATIVE (NEGATIVE); BLOOD, URINE BLOOD 1+ (NEGATIVE); GLUCOSE, URINE (UA) AUTO NEGATIVE (NEGATIVE); KETONE, URINE AUTO NEGATIVE (NEGATIVE); LEUKOCYTE ESTERASE, URINE AUTO NEGATIVE (NEGATIVE); MUCUS, URINE SMALL (NEGATIVE); NITRITE, URINE AUTO NEGATIVE (NEGATIVE); PROTEIN, URINE AUTO NEGATIVE (NEGATIVE); RBC, URINE AUTO 14 /HPF (0-3); SPECIFIC GRAVITY URINE AUTO 1.023 (1.002-1.035); SQUAMOUS EPITHELIAL CELL UR AU 0 /HPF (0-6); UROBILINOGEN, URINE AUTO 0.2 mg/dL (0.0-2.0); WBC, URINE AUTO 1 /HPF (0-3)
== END ==
LOC: M SFHCCLAY 11:14
PROVIDERS: ATTEND Nurse Practitioner Family
DX: R30.0 Dysuria (principal); R31.29 Other microscopic hematuria

== ENCOUNTER → 2025-02-26 | Outpatient (REF) | payer MEDICARE, OTHER ==
[2025-02-26 13:47] LABS: BASO # 0.0 10^3/uL (0.0-0.2); BASO % 0.3 % (0.0-1.0); EOS # 0.1 10^3/uL (0.0-0.5); EOS % 1.7 % (0.0-3.0); LYMPH # 1.7 10^3/uL (1.5-5.0); LYMPH % 22.7 % (24.0-44.0); MONO # 1.0 10^3/uL (0.0-0.8); MONO % 13.0 % (2.0-8.0); NEUTROPHILS # 4.6 10^3/uL (1.5-8.5); NEUTROPHILS % 61.8 % (36.0-66.0); PLATELET COUNT, AUTOMATED 338 10^3/uL (150-450)
[2025-02-26 13:50] LABS: ALT/SGPT 15 U/L (7.0-40); AST/SGOT 18 U/L (<34); CALCIUM LEVEL 9.3 MG/DL (8.3-10.6); CARBON DIOXIDE LEVEL 30 MMOL/L (20-31); CHLORIDE LEVEL 99 MMOL/L (98-107); CHOLESTEROL LEVEL 147 MG/DL (<200); CHOLESTEROL RISK RATIO 2.50 (<5); CREATININE FOR GFR 0.67 MG/DL (0.55-1.30); GLOMERULAR FILTRATION RATE > 90.0 (>39); IRON (FE) 37 UG/DL (50-170); LDL CHOLESTEROL 70.2 MG/DL (<100); NON-HDL-C 88.4 MG/DL; PERCENT SATURATION 17.6 % (13.2-45.0); POTASSIUM SERUM 3.7 MMOL/L (3.5-5.1); SODIUM LEVEL 137 MMOL/L (136-145); TRIGLYCERIDES LEVEL 91 MG/DL (<150)
[2025-02-26 13:58] LABS: ESTIMATED AVERAGE GLUCOSE 117.0 MG/DL (60-110)
== END ==
LOC: M SFHCCLAY 08:07
PROVIDERS: ATTEND Nurse Practitioner Family
DX: I10 Essential (primary) hypertension (principal); R73.03 Prediabetes; I48.0 Paroxysmal atrial fibrillation; E78.00 Pure hypercholesterolemia, unspecified; Z85.3 Personal history of malignant neoplasm of breast; D50.9 Iron deficiency anemia, unspecified

== ENCOUNTER → 2025-02-27 | Outpatient (CLI) | payer MEDICARE, OTHER | LOC: M PLAIMG 13:11 | PROVIDERS: ATTEND Nurse Practitioner Family | DX: R31.9 Hematuria, unspecified (principal) ==